=== PATIENT | female | born 1940 | race Caucasian/White ===

== ENCOUNTER → 2016-08-06 | Outpatient (CLI) | payer OTHER ==
[~2016-08-06] MED LIST: AMLO2.5T PO; CHOL20009 PO; IBUP-1050 PO; PANT1TAB48 PO
--- NOTE | 2016-08-08 13:33 | MAMMOGRAPHY REPORT ---
BILATERAL DIGITAL SCREENING MAMMOGRAM TOMOSYNTHESIS WITH CAD: 08/06/2016 CLINICAL HISTORY: Routine screening examination. TECHNIQUE: Breast tomosynthesis in addition to standard 2D mammography was performed. Current study was also evaluated with a Computer Aided Detection (CAD) system. COMPARISON: Comparison is made to exams dated: 07/27/2015 mammogram, 07/21/2013 mammogram, 07/25/2014 mammogram, 07/10/2012 mammogram, 11/14/2009 mammogram - [facility] [address], and 02/26/2008. BREAST COMPOSITION: There are scattered areas of fibroglandular density in both breasts. FINDINGS: An asymmetry in the upper outer quadrant of the right breast appears similar to the 2007, 11/14/2009 and 07/10/2012 mammograms, most likely representing the patient's baseline parenchy mal pattern. No new suspicious mass, architectural distortion or cluster of microcalcifications is seen. IMPRESSION: ACR BI-RADS CATEGORY 1: NEGATIVE There is no mammographic evidence of malignancy. A 1 year screening mammogram is recommended. The p atient will receive written notification of the results. Approximately 10% of breast cancers are not detected with mammography. A negative mammographic repor t should not delay biopsy if a clinically suggestive mass is present. Anna Flower M.D. ay/:08/07/2016 17:53:02 Corporate Law Specialist: Shannan ADDISON(Isidro)(Aliza), [facility] [address] letter sent: Normal 1/2 BI-RADS Code: ACR BI-RADS Category 1: Negative
== END | disposition home or self-care (01) ==
LOC: C.MAMM 13:13
PROVIDERS: ATTEND Internal Medicine Geriatric Medicine
DX: Z12.31 Encounter for screening mammogram for malignant neoplasm of breast (principal)

== ENCOUNTER → 2016-12-17 | Day surgery (SDC) | payer OTHER ==
[2016-11-21 10:42] VITALS: Ht 152.4 cm; Wt 63.6 kg
[~2016-12-17] VITALS: Ht 152.4 cm; Wt 63.6 kg
[~2016-12-17] MED LIST changes: +500ML BSS 0.3ML EPI 1:1000PF IRRIG ONE; +ACETAMINOPHEN 325 MG TAB PO PRN; +AMVISC PLUS 0.8ML SYRINGE INT OCU ONE; +ATROPINE SULFATE 0.1 MG/ML 5ML SYR IV PRN; +BSS FLUSH ONE; -CHOL20009 PO; +EpHEDrine SULFATE INJ 50 MG/ML AMP IV PRN; +EpINEphrine INJ 1MG/ML AMP 1 MG/ML AMP ONE; +FENTANYL CITRATE INJ 50 MCG/1 ML 2 ML VIAL ONE; +LACTATED RINGER'S 1000ML 500 ML IV SCH; +LIDOCAINE 3.5% OPH GEL PER APPLICATION CHARGE ONE; +LIDOCAINE HCL 1% MPF 2 ML VIAL ONE; +LIDOCAINE HCL 2% 2 ML VIAL (20MG/ML) ONE; +MIDAZOLAM HCL 1 MG/ML 2ML VIAL ONE; +OCUCOAT 1 ML SOLN IO ONE; +POVIDONE-IODINE OP SOLN 30 ML BTL ONE; +PROPARACAINE 0.5% OP SOLN PER DROP CHARGE OPL SCH; +PROPOFOL IV EMULSION 10 MG/ML 20 ML VIAL IV ONE; +TOBRAMYCIN/DEXAMETHASONE OPH OINT PER APPLN CHARGE ONE
[2016-12-17] MEDS: PHENYLEPHRINE HCL 2.5% OP SOLN PER DROP CHARGE OPL SCH ×2 (09:22→09:28)
[2016-12-17] MEDS: TROPICAMIDE 1% OP SOLN PER DROP CHARGE OPL SCH ×2 (09:23→09:29)
[2016-12-17] MEDS: CYCLOPENTOLATE HCL 1% OP SOLN PER DROP CHARGE OPL SCH ×2 (09:24→09:30)
[2016-12-17] MEDS: KETOROLAC 0.5% OP SOLN PER DROP CHARGE OPL SCH ×2 (09:25→09:31)
[2016-12-17] MEDS: GATIFLOXACIN OP SOLN PER DROP CHARGE OPL SCH ×2 (09:27→09:37)
--- NOTE | 2016-12-17 09:35 | History & Physical Bridge - SC ---
H&P Re-Evaluation Bridge Note: I have examined the patient, reviewed the History & Physical and in the interval since the performance of the History & Physical I have noted the following changes of clinical significance: No changes noted
[2016-12-17 10:26] VITALS: TEMP 36.8
--- NOTE | 2016-12-17 10:26 | Discharge Instructions-SurgCtr ---
Discharge Instructions Date of Service Dec 17, 2016. Visit Reason for Visit: Cataract Left Eye Discharge Discharge Diagnosis / Problem: cataract Discharge Goals Goal(s): Improve function Activity Recommendations Activity Limitations: per Instructions/Follow-up section Anesthesia . Post Anesthesia Instructions: If you have had General Anesthesia or IV Sedation: * Do not drive today. * Resume driving when surgeon permits. * Do not make important decisions or sign legal documents today. * Call surgeon for: 1. Temperature elevations greater than 101 degrees F. 2. Uncontrollable pain. 3. Excessive bleeding. 4. Persistent nausea and vomiting. 5. Medication intolerance (nausea, vomiting or rash). * For nausea and vomiting use only clear liquids such as: tea, soda, bouillon until nausea subsides, then gradually increase diet as tolerated. * If you have any concerns or questions, call your surgeon's office. If physician is unavailable and it is an emergency, call 911 or go to the nearest emergency room. . Instructions / Follow-Up Instructions / Follow-Up ACTIVITY RECOMMENDATIONS: * No strenuous lifting, jogging or running for 4 days * No swimming or yard work for 1 week. * Limited bending is permitted, such as putting on shoes. RETURN TO SCHOOL/WORK: No work until seen by physician in office. MEDICATIONS: Resume previous medications unless instructed otherwise by your surgeon. This includes eye drops for glaucoma. Zymaxid/Gatifloxacin (whiteside cap) - one drop every 2 hours until bedtime Nevanac/Ilevro/Prolensa/Ketorolac (tilley cap) - one drop every 4 hours until bedtime Prednisolone/Durezol (white/pink cap, SHAKE WELL) - one drop every 2 hours until bedtime Starting tomorrow - all 3 drops every 4 hours until seen in the office Optive drops - as needed for discomfort SPECIAL CARE INSTRUCTIONS: * Wear eyeshield when sleeping, for four nights. * You may wear your own glasses or sunglasses while awake. * You may read or watch TV * You may shower and wash your face, but be gentle around the eye and pat dry. * Blurry vision and mild irritation are normal. * Call office if pain is more severe or vision becomes dark at . FOLLOW UP VISIT: Follow-up with Dr Zamarripa tomorrow. Diet Recommendations Home Diet: resume previous diet Procedures Procedures Performed: Left Cataract Phacoemulsification With Intraocular Lens Implant Pending Studies Studies pending at discharge: no Medical Emergencies . Who to Call and When: Medical Emergencies: If at any time you feel your situation is an emergency, please call 911 immediately. . Non-Emergent Contact Non-Emergency issues call your: Marketing Developer . . "Provider Documentation" section prepared by William Zamarripa. .
--- NOTE | 2016-12-17 10:27 | [facility] Operative Report ---
Operative Report Date of Service Dec 17, 2016. Operative Report 1. PREOPERATIVE DIAGNOSIS: Cataract of the left eye. 2. POSTOPERATIVE DIAGNOSIS: Same. 3. PROCEDURE: Phacoemulsification with intraocular lens implantation of the left eye. SURGEON: Dr. William Zamarripa. ANESTHESIA: Topical Lidocaine gel, 1% Non- Preserved intracameral Lidocaine, and monitored intravenous sedation. INDICATIONS FOR THE PROCEDURE: The patient is a 76 - year-old female with a history of cataract of the left eye causing significant visual impairment. The details of the proposed procedure were explained to the patient who asked appropriate questions and following discussion of all risks, benefits and alternatives agreed to have the procedure done. 4. OPERATION AND FINDINGS: DESCRIPTION OF PROCEDURE: After informed consent was obtained, the patient was brought to the Operating Room at the [facility]. The patient was placed in a supine position and then the left eye was prepped and draped in the usual sterile fashion for intraocular surgery. A drop of topical Lidocaine gel was placed in the operative eye. A wire lid speculum was then placed in the fornices. A corneal paracentesis was then created temporally. The Non-Preserved Lidocaine was then instilled into the anterior chamber. The anterior chamber was then pressurized with viscoelastic. A 2.0 mm clear corneal incision was then created temporally. A cystotome was inserted into the anterior chamber and used to create a tear in the anterior lens capsule. This capsular tear was then used to create a small flap and the flap was dragged in a counterclockwise direction in order to create a continuous curvilinear capsulorrhexis. Hydrodissection was accomplished with balanced salt solution. Phacoemulsification of the lens nucleus was then performed in a standard [id number]-wkzptey technique. The phaco time was 34 seconds with an average power of 19 %. The remaining cortical material was removed using irrigation aspiration. The capsular bag was then filled with viscoelastic. A Bausch & Lomb MI60L +25.5 diopters lens was then loaded into the injector and injected into the capsular bag. The remaining viscoelastic was removed with the irrigation aspiration handpiece. The wound was hydrated and then checked and found to be watertight. The intraocular pressure was checked and found to be adequate. The wire lid speculum was removed and the patient's face was cleaned and dried. TobraDex ointment was placed in the inferior fornix. The patient was discharged to the Recovery Room having tolerated the procedure well. There were no complications. The patient will be seen tomorrow in the office for follow-up. I attest to the content of the Intraoperative Record and any orders documented therein. Any exceptions are noted below.
[2016-12-17 10:49] VITALS: BP 148/68; PULSE 61; O2SAT 97
--- NOTE | 2016-12-17 10:54 | Anesthesiology Progress Note ---
Anesthesia Post Op Note Date & Time Dec 17, 2016 at 10:53 Vital Signs Pain Intensity: 0 Vital Signs Past 12 Hours Date Time Temp Pulse Resp B/P (MAP) Pulse Ox O2 Delivery O2 Flow Rate FiO2 12/17/16 10:49 61 16 148/68 (94) 97 Room Air 12/17/16 10:26 36.8 63 16 134/57 (82) 97 Room Air 12/17/16 09:13 36.7 66 16 148/78 (101) 96 Room Air Notes Mental Status: alert / awake / arousable, participated in evaluation Pt Amnestic to Procedure: No Nausea / Vomiting: adequately controlled Pain: adequately controlled Airway Patency, RR, SpO2: stable & adequate BP & HR: stable & adequate Hydration State: stable & adequate Anesthetic Complications: no major complications apparent Degree of amnesia expected for MAC
== END | disposition home or self-care (01) ==
LOC: X.SURG 08:56
PROVIDERS: ATTEND Ophthalmology
DX: H26.9 Unspecified cataract (principal); I10 Essential (primary) hypertension; M81.0 Age-related osteoporosis without current pathological fracture; E78.5 Hyperlipidemia, unspecified; K21.9 Gastro-esophageal reflux disease without esophagitis; E55.9 Vitamin D deficiency, unspecified; Z82.49 Family history of ischemic heart disease and other diseases of the circulatory system; Z79.899 Other long term (current) drug therapy

== ENCOUNTER → 2017-01-14 | Day surgery (SDC) | payer OTHER ==
[2016-12-31 07:55] VITALS: Ht 152.4 cm; Wt 63.6 kg
[~2017-01-14] VITALS: Ht 152.4 cm; Wt 63.6 kg
[~2017-01-14] MED LIST changes: -FENTANYL CITRATE INJ 50 MCG/1 ML 2 ML VIAL ONE; -LIDOCAINE HCL 2% 2 ML VIAL (20MG/ML) ONE; -PROPARACAINE 0.5% OP SOLN PER DROP CHARGE OPL SCH; +PROPARACAINE 0.5% OP SOLN PER DROP CHARGE OPR SCH; -PROPOFOL IV EMULSION 10 MG/ML 20 ML VIAL IV ONE
[2017-01-14] MEDS: PHENYLEPHRINE HCL 2.5% OP SOLN PER DROP CHARGE OPR SCH ×2 (10:06→10:11)
[2017-01-14] MEDS: TROPICAMIDE 1% OP SOLN PER DROP CHARGE OPR SCH ×2 (10:07→10:12)
[2017-01-14] MEDS: CYCLOPENTOLATE HCL 1% OP SOLN PER DROP CHARGE OPR SCH ×2 (10:08→10:13)
[2017-01-14] MEDS: KETOROLAC 0.5% OP SOLN PER DROP CHARGE OPR SCH ×2 (10:09→10:14)
[2017-01-14] MEDS: GATIFLOXACIN OP SOLN PER DROP CHARGE OPR SCH ×2 (10:10→10:26)
--- NOTE | 2017-01-14 11:23 | Discharge Instructions-SurgCtr ---
Discharge Instructions Date of Service Jan 14, 2017. Visit Reason for Visit: Cataract Right Eye Discharge Discharge Diagnosis / Problem: cataract Discharge Goals Goal(s): Improve function Activity Recommendations Activity Limitations: per Instructions/Follow-up section Anesthesia . Post Anesthesia Instructions: If you have had General Anesthesia or IV Sedation: * Do not drive today. * Resume driving when surgeon permits. * Do not make important decisions or sign legal documents today. * Call surgeon for: 1. Temperature elevations greater than 101 degrees F. 2. Uncontrollable pain. 3. Excessive bleeding. 4. Persistent nausea and vomiting. 5. Medication intolerance (nausea, vomiting or rash). * For nausea and vomiting use only clear liquids such as: tea, soda, bouillon until nausea subsides, then gradually increase diet as tolerated. * If you have any concerns or questions, call your surgeon's office. If physician is unavailable and it is an emergency, call 911 or go to the nearest emergency room. . Instructions / Follow-Up Instructions / Follow-Up ACTIVITY RECOMMENDATIONS: * No strenuous lifting, jogging or running for 4 days * No swimming or yard work for 1 week. * Limited bending is permitted, such as putting on shoes. RETURN TO SCHOOL/WORK: No work until seen by physician in office. MEDICATIONS: Resume previous medications unless instructed otherwise by your surgeon. This includes eye drops for glaucoma. Zymaxid/Gatifloxacin (whiteside cap) - one drop every 2 hours until bedtime Nevanac/Ilevro/Prolensa/Ketorolac (tilley cap) - one drop every 4 hours until bedtime Prednisolone/Durezol (white/pink cap, SHAKE WELL) - one drop every 2 hours until bedtime Starting tomorrow - all 3 drops every 4 hours until seen in the office Optive drops - as needed for discomfort SPECIAL CARE INSTRUCTIONS: * Wear eyeshield when sleeping, for four nights. * You may wear your own glasses or sunglasses while awake. * You may read or watch TV * You may shower and wash your face, but be gentle around the eye and pat dry. * Blurry vision and mild irritation are normal. * Call office if pain is more severe or vision becomes dark at . FOLLOW UP VISIT: Follow-up with Dr Zamarripa tomorrow. Diet Recommendations Home Diet: resume previous diet Procedures Procedures Performed: Right Cataract Phacoemulsification With Intraocular Lens Implant Pending Studies Studies pending at discharge: no Medical Emergencies . Who to Call and When: Medical Emergencies: If at any time you feel your situation is an emergency, please call 911 immediately. . Non-Emergent Contact Non-Emergency issues call your: [employer] Firer/Fireman . . "Provider Documentation" section prepared by William Zamarripa. .
--- NOTE | 2017-01-14 11:24 | [facility] Operative Report ---
Operative Report Date of Service Jan 14, 2017. Operative Report 1. PREOPERATIVE DIAGNOSIS: Cataract of the right eye. 2. POSTOPERATIVE DIAGNOSIS: Same. 3. PROCEDURE: Phacoemulsification with intraocular lens implantation of the right eye. SURGEON: Dr. William Zamarripa. ANESTHESIA: Topical Lidocaine gel, 1% Non- Preserved intracameral Lidocaine, and monitored intravenous sedation. INDICATIONS FOR THE PROCEDURE: The patient is a 76 - year-old female with a history of cataract of the right eye causing significant visual impairment. The details of the proposed procedure were explained to the patient who asked appropriate questions and following discussion of all risks, benefits and alternatives agreed to have the procedure done. 4. OPERATION AND FINDINGS: DESCRIPTION OF PROCEDURE: After informed consent was obtained, the patient was brought to the Operating Room at the [facility]. The patient was placed in a supine position and then the right eye was prepped and draped in the usual sterile fashion for intraocular surgery. A drop of topical Lidocaine gel was placed in the operative eye. A wire lid speculum was then placed in the fornices. A corneal paracentesis was then created temporally. The Non-Preserved Lidocaine was then instilled into the anterior chamber. The anterior chamber was then pressurized with viscoelastic. A 2.0 mm clear corneal incision was then created temporally. A cystotome was inserted into the anterior chamber and used to create a tear in the anterior lens capsule. This capsular tear was then used to create a small flap and the flap was dragged in a counterclockwise direction in order to create a continuous curvilinear capsulorrhexis. Hydrodissection was accomplished with balanced salt solution. Phacoemulsification of the lens nucleus was then performed in a standard pjnatq-wfk-udjeori technique. The phaco time was 29 seconds with an average power of 14 %. The remaining cortical material was removed using irrigation aspiration. The capsular bag was then filled with viscoelastic. A Bausch & Lomb MI60L +22.5 diopters lens was then loaded into the injector and injected into the capsular bag. The remaining viscoelastic was removed with the irrigation aspiration handpiece. The wound was hydrated and then checked and found to be watertight. The intraocular pressure was checked and found to be adequate. The wire lid speculum was removed and the patient's face was cleaned and dried. TobraDex ointment was placed in the inferior fornix. The patient was discharged to the Recovery Room having tolerated the procedure well. There were no complications. The patient will be seen tomorrow in the office for follow-up. I attest to the content of the Intraoperative Record and any orders documented therein. Any exceptions are noted below.
[2017-01-14 11:25] VITALS: TEMP 36.8
[2017-01-14 11:43] VITALS: BP 164/72; PULSE 70; O2SAT 96
--- NOTE | 2017-01-14 12:09 | Anesthesia Progress Nt - [facility] ---
Anesthesia Post Op Note Date & Time Jan 14, 2017 at 12:08 Vital Signs Pain Intensity: 0 Vital Signs Past 12 Hours Date Time Temp Pulse Resp B/P (MAP) Pulse Ox O2 Delivery O2 Flow Rate FiO2 01/14/17 11:43 70 16 164/72 (102) 96 Room Air 01/14/17 11:25 36.8 72 18 149/79 (102) 97 Room Air 01/14/17 09:59 36.9 68 22 161/71 (101) 98 Room Air Notes Mental Status: alert / awake / arousable, participated in evaluation Pt Amnestic to Procedure: Yes Nausea / Vomiting: adequately controlled Pain: adequately controlled Airway Patency, RR, SpO2: stable & adequate BP & HR: stable & adequate Hydration State: stable & adequate Anesthetic Complications: no major complications apparent
== END | disposition home or self-care (01) ==
LOC: X.SURG 09:22
PROVIDERS: ATTEND Ophthalmology
DX: H26.9 Unspecified cataract (principal); I10 Essential (primary) hypertension; E78.5 Hyperlipidemia, unspecified; H40.9 Unspecified glaucoma; Z79.899 Other long term (current) drug therapy

== ENCOUNTER → 2017-02-10 | Outpatient (CLI) | payer OTHER ==
[~2017-02-10] MED LIST changes: -500ML BSS 0.3ML EPI 1:1000PF IRRIG ONE; -ACETAMINOPHEN 325 MG TAB PO PRN; -AMVISC PLUS 0.8ML SYRINGE INT OCU ONE; -ATROPINE SULFATE 0.1 MG/ML 5ML SYR IV PRN; -BSS FLUSH ONE; -EpHEDrine SULFATE INJ 50 MG/ML AMP IV PRN; -EpINEphrine INJ 1MG/ML AMP 1 MG/ML AMP ONE; -LACTATED RINGER'S 1000ML 500 ML IV SCH; -LIDOCAINE 3.5% OPH GEL PER APPLICATION CHARGE ONE; -LIDOCAINE HCL 1% MPF 2 ML VIAL ONE; -MIDAZOLAM HCL 1 MG/ML 2ML VIAL ONE; -OCUCOAT 1 ML SOLN IO ONE; -POVIDONE-IODINE OP SOLN 30 ML BTL ONE; -PROPARACAINE 0.5% OP SOLN PER DROP CHARGE OPR SCH; -TOBRAMYCIN/DEXAMETHASONE OPH OINT PER APPLN CHARGE ONE
[2017-02-10 13:32] LABS: BASO % 0.5 %; BASO ABS # 0.04 K/uL (0-0.2); COMPLETE YES; EOS % 1.8 %; HEMATOCRIT 43.7 % (37-47); IG% 0.2 %; LYMPH % 39.1 %; MEAN CELL VOLUME 87.8 fL (80-100); MEAN CORPUSCULAR HEMOGLOBIN 29.1 pg (25-34); MEAN CORPUSCULAR HGB CONC 33.2 g/dl (32-36); MEAN PLATELET VOLUME 10.3 fL (7.4-10.4); MONO % 7.1 %; NEUT % 51.3 %; PLATELET COUNT 383 K/uL (130-400); RED BLOOD COUNT 4.98 M/uL (4.2-5.4); WHITE BLOOD COUNT 8.45 K/uL (4.8-10.8)
[2017-02-10 14:07] LABS: ALT/SGPT 23 U/L (12-78); BLOOD UREA NITROGEN 11 mg/dl (7-18); BUN/CREATININE RATIO 14.8 (10-20); CALCIUM 9.4 mg/dl (8.5-10.1); CARBON DIOXIDE 24 mmol/L (21-32); CHLORIDE 105 mmol/L (98-107); CHOLESTEROL 210 mg/dl (0-200); CREATININE 0.77 mg/dl (0.60-1.20); GLUCOSE 93 mg/dl (70-99); SODIUM 140 mmol/L (136-145); TRIGLYCERIDES 213 mg/dl (0-150); VERY LOW DENSITY LIPOPROT CALC 43 mg/dl
[2017-02-10 14:18] LABS: ALB/GLOB RATIO 1.1 (0.9-2); ALKALINE PHOSPHATASE 72 U/L (45-117); AST/SGOT 20 U/L (15-37); CHOLESTEROL/HDL RATIO 3.4; HDL CHOLESTEROL 61 mg/dl; LDL CHOLESTEROL CALCULATED 106 mg/dl
== END | disposition home or self-care (01) ==
LOC: C.LABBC 12:14
PROVIDERS: ATTEND Internal Medicine Geriatric Medicine
DX: E78.5 Hyperlipidemia, unspecified (principal); I10 Essential (primary) hypertension; E55.9 Vitamin D deficiency, unspecified; K62.5 Hemorrhage of anus and rectum; K22.2 Esophageal obstruction; K76.0 Fatty (change of) liver, not elsewhere classified

== ENCOUNTER → 2017-08-12 | Outpatient (CLI) | payer OTHER ==
[~2017-08-12] MED LIST changes: +PANT1TAB3 PO; -PANT1TAB48 PO
--- NOTE | 2017-08-13 07:56 | MAMMOGRAPHY REPORT ---
BILATERAL DIGITAL SCREENING MAMMOGRAM TOMOSYNTHESIS WITH CAD: 08/12/2017 CLINICAL HISTORY: Routine screening. TECHNIQUE: Breast tomosynthesis in addition to standard 2D mammography was performed. Current study was also evaluated with a Computer Aided Detection (CAD) system. COMPARISON: Comparison is made to exams dated: 08/06/2016 mammogram, 07/27/2015 mammogram, 07/25/2014 m ammogram, 07/21/2013 mammogram, 07/10/2012 mammogram, and 11/14/2009 mammogram - [facility]. BREAST COMPOSITION: There are scattered areas of fibroglandular density in both breasts. FINDINGS: There is stable focal asymmetry in the upper outer middle one third of the right breast. N o suspicious mass, architectural distortion or cluster of microcalcifications is seen. IMPRESSION: ACR BI-RADS CATEGORY 1: NEGATIVE There is no mammographic evidence of malignancy. A 1 year screening mammogram is recommended. The pa tient will receive written notification of the results. Approximately 10% of breast cancers are not detected with mammography. A negative mammographic report should not delay biopsy if a clinically suggestive mass is present. Anna Flower M.D. ay/:08/12/2017 15:04:55 Documentation Nurse: Sanya ADDISON(R)(M), [facility] letter sent: Normal 1/2 BI-RADS Code: ACR BI-RADS Category 1: Negative
== END | disposition home or self-care (01) ==
LOC: C.MAMM 14:06
PROVIDERS: ATTEND Internal Medicine Geriatric Medicine
DX: Z12.31 Encounter for screening mammogram for malignant neoplasm of breast (principal)

== ENCOUNTER 2018-12-26 22:26 | Inpatient (IN) ==
[2018-12-26] MEDS ORDERED: MoRPHine SULFATE 4 MG/ML 1 ML CARP\\VIAL IV STA (22:48)
[2018-12-26] MEDS ORDERED: ONDANSETRON INJ 2 MG/ML 2 ML VIAL IV STA ×2 (22:48→23:38)
[2018-12-26 22:55] LABS: Basophils # (auto) 0.04 K/uL (0-0.2); Basophils % (auto) 0.5 %; Eosinophils # (auto) 0.24 K/uL (0-0.5); Eosinophils % (auto) 3.1 %; Hematocrit (blood only) 43.5 % (37-47); Hemoglobin 14.7 g/dL (12.0-16.0); Immature Granulocytes # (auto) 0.02 K/uL (0.00-0.02); Immature Granulocytes % (auto) 0.3 %; Lymphocytes # (auto) 3.17 K/uL (1.2-3.4); Lymphocytes % (auto) 41.3 %; Mean Corpuscular Hemoglobin 29.5 pg (25-34); Mean Corpuscular Hgb Conc 33.8 g/dL (32-36); Mean Corpuscular Volume 87.2 fL (80-100); Monocytes # (auto) 0.59 K/uL (0.11-0.59); Monocytes % (auto) 7.7 %; Neutrophils # (auto) 3.61 K/uL (1.4-6.5); Neutrophils % (auto) 47.1 %; Platelet Count 345 K/uL (130-400); RDW Coefficient of Variation 13.9 % (11.5-14.5); RDW Standard Deviation 44.3 fL (36.4-46.3); Red Blood Count 4.99 M/uL (4.2-5.4); White Blood Count 7.67 K/uL (4.8-10.8)
[2018-12-26 23:11] LABS: Albumin Level 3.8 gm/dl (3.4-5.0); BUN Creatinine Ratio 21.5 (10-20); Calcium 9.1 mg/dl (8.5-10.1); Est GFR (African American) 78.2; Est GFR (Non-African American) 67.5; Potassium 3.7 mmol/L (3.5-5.1)
[2018-12-26 23:23] LABS: Bilirubin,Total 0.4 mg/dl (0.2-1); Globulin 3.8 gm/dl (2.5-4.0); Total Protein 7.6 gm/dl (6.4-8.2); Troponin I 0.05 ng/ml (0-0.045)
--- NOTE | 2018-12-27 00:01 | Emergency Department Note ---
History of Present Illness General Chief complaint: Chest Pain Stated complaint: CHEST PAIN History of Present Illness Maximum Pain Intensity: 5 This 78-year-old presents to the ER complaining of right upper quadrant pain Location: Right upper quadrant Quality: Achy Severity: Moderate Duration: Past day Timing: Started 1 day ago Context: Symptoms persisted and patient came in Modifying factors: better with nothing; worse with palpation Patient states the pain radiates to her back. Patient had a lot of fried food today at the fair. She still has her gallbladder. Patient has high blood pressure and no other medical problems. No history of heart disease. Patient denies exertional chest pain, dyspnea, fever, chills, vomiting, diarrhea or any other medical complaints. Home Medications Home Medications Medication Instructions Recorded Confirmed Type amlodipine 10 mg tablet 10 mg PO DAILY #90 tab 12/14/18 12/26/18 Rx Allergies Allergy/AdvReac Type Severity Reaction Status Date / Time moxifloxacin AdvReac Unknown CT, N/V Verified 12/26/18 22:54 phenobarbital AdvReac Unknown "I GOT Verified 12/26/18 22:54 REALLY DITZY" Past Med/Surg History Medical History High blood pressure Social History Feels Safe at Home: Yes Smoking Status: Never smoker Review of Systems All systems reviewed & are unremarkable except as noted in HPI & below Physical Exam Vital Signs Vital Signs - 24 hr 12/26/18 22:27 12/26/18 22:47 12/26/18 22:51 Temperature 36.7 C Temperature Source Oral Sepsis Recent Fever Within 48 Hours No Sepsis New/Unexplained Change in Mental Status No Sepsis Action Taken by Nursing No Action Required Pulse Rate 83 76 Pulse Rate [Finger] 73 Pulse Rate from SpO2 Sensor Respiratory Rate 16 20 Respiratory Effort / Characteristics Non-Labored Spontaneous Respiratory Depth Normal Blood Pressure 191/79 H Blood Pressure Mean 116 Pulse Oximetry 98 Oxygen Delivery Method Room Air Room Air 12/26/18 22:55 12/26/18 23:00 12/26/18 23:01 Temperature Temperature Source Sepsis Recent Fever Within 48 Hours Sepsis New/Unexplained Change in Mental Status Sepsis Action Taken by Nursing Pulse Rate 73 76 74 Pulse Rate [Finger] Pulse Rate from SpO2 Sensor 74 76 74 Respiratory Rate 16 22 23 Respiratory Effort / Characteristics Respiratory Depth Blood Pressure 160/81 H 185/91 H Blood Pressure Mean 107 122 Pulse Oximetry 99 98 97 Oxygen Delivery Method 12/26/18 23:30 12/26/18 23:31 12/27/18 00:03 Temperature Temperature Source Sepsis Recent Fever Within 48 Hours Sepsis New/Unexplained Change in Mental Status Sepsis Action Taken by Nursing Pulse Rate 65 65 77 Pulse Rate [Finger] Pulse Rate from SpO2 Sensor 66 65 Respiratory Rate 15 19 17 Respiratory Effort / Characteristics Respiratory Depth Blood Pressure 167/67 H Blood Pressure Mean 100 Pulse Oximetry 97 97 Oxygen Delivery Method 12/27/18 00:30 12/27/18 01:24 12/27/18 01:30 Temperature Temperature Source Sepsis Recent Fever Within 48 Hours Sepsis New/Unexplained Change in Mental Status Sepsis Action Taken by Nursing Pulse Rate 68 64 64 Pulse Rate [Finger] Pulse Rate from SpO2 Sensor 67 63 63 Respiratory Rate 19 21 20 Respiratory Effort / Characteristics Respiratory Depth Blood Pressure Blood Pressure Mean Pulse Oximetry 98 96 97 Oxygen Delivery Method 12/27/18 01:31 12/27/18 02:00 12/27/18 02:01 Temperature Temperature Source Sepsis Recent Fever Within 48 Hours Sepsis New/Unexplained Change in Mental Status Sepsis Action Taken by Nursing Pulse Rate 59 L 60 58 L Pulse Rate [Finger] Pulse Rate from SpO2 Sensor 59 L 59 L 58 L Respiratory Rate 17 15 26 H Respiratory Effort / Characteristics Respiratory Depth Blood Pressure 155/68 H 134/61 Blood Pressure Mean 97 85 Pulse Oximetry 96 95 95 Oxygen Delivery Method 12/27/18 02:30 12/27/18 02:32 Temperature Temperature Source Sepsis Recent Fever Within 48 Hours Sepsis New/Unexplained Change in Mental Status Sepsis Action Taken by Nursing Pulse Rate 64 66 Pulse Rate [Finger] Pulse Rate from SpO2 Sensor 65 67 Respiratory Rate 16 22 Respiratory Effort / Characteristics Respiratory Depth Blood Pressure 198/192 H Blood Pressure Mean 194 Pulse Oximetry 97 96 Oxygen Delivery Method VITALS: Vitals are noted on the nurse's note and reviewed by myself. Vital signs hypertensive. GENERAL: Pleasant female, in no acute distress, nondiaphoretic, well-developed well-nourished. SKIN: The skin was without rashes, erythema, edema, or bruising. There is no tenting of the skin. Capillary reflex less than 2 seconds. HEAD: Normocephalic atraumatic. EARS: External auditory canals clear EYES: Pupils equal round and reactive to light and accommodation. Conjunctivae without injection, sclerae without icterus. Extraocular movements intact. NOSE: Patent, turbinates without inflammation or discharge. MOUTH: Mucous membranes moist. Pharynx without erythema or exudate. Uvula midline. Airway patent. Tongue does not deviate. NECK: Supple without nuchal rigidity. No lymphadenopathy. No thyromegaly. Cervical spine is nontender. No JVD. HEART: Regular rate and rhythm LUNGS: Clear to auscultation bilaterally without wheezes, rales or rhonchi. No retractions or accessory muscle use. ABDOMEN: Positive bowel sounds x 4. Normal tympanic percussion. Soft, tender to palpation right upper quadrant, without masses or organomegaly. No guarding or rebound tenderness. No CVA tenderness MUSCULOSKELETAL: No muscle atrophy, erythema, or edema noted. NEURO: Patient was alert and oriented to person place and time. Normal sens ation to light and sharp touch. No focal neurological deficits. Course Administered Medications Ioversol (Optiray 320 125ml) 71 ml IV ONCE PRN PRN Reason: Interaction Checking Stop: 12/31/18 00:06 Last Admin: 12/27/18 00:08 Dose: 71 ml Documented by: [id number] Discontinued Medications Cefoxitin Sodium (Mefoxin) 2,000 mg in 60 mls @ 100 mls/hr IV NOW STA Stop: 12/27/18 03:04 Last Admin: 12/27/18 03:00 Dose: 100 mls/hr Documented by: [id number] Morphine Sulfate (Morphine Sulfate) 4 mg IV NOW STA Stop: 12/26/18 22:49 Last Admin: 12/26/18 23:03 Dose: 4 mg Documented by: [id number] Ondansetron HCl (Zofran) 4 mg IV NOW STA Stop: 12/26/18 22:49 Last Admin: 12/26/18 23:03 Dose: 4 mg Documented by: [id number] Ondansetron HCl (Zofran) 4 mg IV NOW STA Stop: 12/26/18 23:39 Last Admin: 12/26/18 23:41 Dose: 4 mg Documented by: [id number] Medical Decision Making Medical Records Attestation: I reviewed the patient's medical records. Home Medications Current Medication List: was personally reviewed by me Laboratory Data Attestation: I reviewed the patient's lab results. Result diagrams: 12/26/18 22:45 12/26/18 22:45 Lab Results 12/26/18 12/26/18 12/26/18 Range/Units 22:45 22:45 22:57 WBC 7.67 (4.8-10.8) K/uL RBC 4.99 (4.2-5.4) M/uL Hgb 14.7 (12.0-16.0) g/dL Hct 43.5 (37-47) % MCV 87.2 (80-100) fL MCH 29.5 (25-34) pg MCHC 33.8 (32-36) g/dL RDW Std Deviation 44.3 (36.4-46.3) fL RDW Coeff of [place] 13.9 (11.5-14.5) % Plt Count 345 (130-400) K/uL MPV 10.0 (7.4-10.4) fL Immature Gran % (Auto) 0.3 % Neut % (Auto) 47.1 % Lymph % (Auto) 41.3 % [place] % (Auto) 7.7 % Eos % (Auto) 3.1 % Baso % (Auto) 0.5 % Immature Gran # (Auto) 0.02 (0.00-0.02) K/uL Neut # (Auto) 3.61 (1.4-6.5) K/uL Lymph # (Auto) 3.17 (1.2-3.4) K/uL [place] # (Auto) 0.59 (0.11-0.59) K/uL Eos # (Auto) 0.24 (0-0.5) K/uL Baso # (Auto) 0.04 (0-0.2) K/uL Sodium 141 (136-145) mmol/L Potassium 3.7 (3.5-5.1) mmol/L Chloride 108 H (98-107) mmol/L Carbon Dioxide 29 (21-32) mmol/L Anion Gap 5.0 (3-11) BUN 18 (7-18) mg/dl Creatinine 0.84 (0.6-1.2) mg/dl Est Cr Clr Drug Dosing 47.0 ml/min Est GFR ( Amer) 78.2 Est GFR (Non-Af Amer) 67.5 BUN/Creatinine Ratio 21.5 H (10-20) Glucose 101 H (70-99) mg/dl Calcium 9.1 (8.5-10.1) mg/dl Total Bilirubin 0.4 (0.2-1) mg/dl AST 21 (15-37) U/L ALT 21 (12-78) U/L Alkaline Phosphatase 76 (45-117) U/L POC Troponin I < 0.03 (0-0.045) ng/ml Troponin I 0.050 H* (0-0.045) ng/ml Total Protein 7.6 (6.4-8.2) gm/dl Albumin 3.8 (3.4-5.0) gm/dl Globulin 3.8 (2.5-4.0) gm/dl Albumin/Globulin Ratio 1.0 (0.9-2) Lipase 155 (73-393) U/L Imaging Data Attestation: I personally reviewed and interpreted this imaging study as follows: MDM Narrative Prior records/ancillary studies reviewed. Triage Nursing notes reviewed. Additional history obtained from family. The patient's history was concerning for abdominal/chest pain. Differential diagnosis: Etiologies such as cardiac ischemia, intra-abdominal, gallbladder, aortic dissection, pulmonary embolism, pneumonia, pneumothorax, musculoskeletal, infections, pericarditis, myocarditis, esophageal rupture, gastrointestinal, as well as others were entertained. Physical examination: As above. ER treatment provided: Morphine, Zofran IV On reassessment the patient felt better. Diagnostic interpretation by me: EKG ordered for chest pain The electrocardiogram was normal sinus, T wave inversions in the anterior leads, rate of 78, EKG compared to prior EKG with no acute changes noted. Impression normal sinus rhythm with T wave inversions in anterior leads unchanged interpreted by myself. Repeat EKG is also unchanged. I think arrhythmia is unlikely. EKG shows normal sinus rhythm with no interval abnormalities such as QT prolongation or WPW. There are no findings to suggest Brugada syndrome. Cardiac monitoring in the emergency department reveals no tachycardic or bradycardic dysrhythmia. Hypertrophic cardiomyopathy was considered but there are no clear historical elements pointing toward this. EKG is not suggestive. The QRS voltage is not extremely large and there are no suggestive Q waves. The labs revealed elevated troponin. Stable H&H Imaging studies: US GALLBLADDER: 12 mm non-mobile gallstone in gallbladder neck. Gallbladder is distended. Gallbladder wall is borderline thickened, measuring 3 mm. 5 mm probable gallbladder wall polyps and there is evidence of adenomyomatosis. Sonographic [place] sign is negative. Findings are equivocal for acute cholecystitis. Consider correlation with nuclear medicine biliary scan as clinically warranted. No biliary ductal dilatation. Liver measures 16.5 cm long. No right hydronephrosis Radiologist: Dav Alva MD Chest x-ray with no acute consolidation, pneumothorax or free air, atelectasis in the right lower lobe per my interpretation CTA CHEST: No evidence of pulmonary embolism No aortic aneurysm or dissection. Mild atherosclerotic plaque. Moderate left anterior descending coronary artery calcification. Mild aortic valve calcification. Moderate subsegmental atelectasis at lung bases, right middle lobe, and lingula. No effusion or pneumothorax. Small sliding hiatal hernia containing ingested material. 9 mm right thyroid nodule. Azygos fissure. Degenerative changes of thoracic spine. Radiologist: Dav Alva MD HEART SCORE: Hx: high/mod/low suspicion: 0 ECG: ST depression/nonspecific changes/normal: 1 Age: Greater than 65/45-64/less than 45: 2 Risk factors: (Hypertension, hyperlipidemia, diabetes, coronary disease, tobacco use, cocaine use): 1 Troponin: Greater than 2 times normal limits/1-2 times normal limits/normal: 1 Total: 5 Consultation: A consultation was placed with surgery, Dr. Ward and recommends medical admission for the elevated troponin and he will see the patient in the morning. The hospitalist, Dr Patino was consulted and will evaluate the patient. The case was discussed and diagnostics were reviewed. The patient was evaluated in the ER for further treatment. Exam and history seem consistent with acute cholecystitis with marginally elevated troponin. Surgery and medicine were consulted. Patient was started antibiotics. They will evaluate the patient. Patient is agreeable treatment plan of admission. By the evaluation outlined above emergent etiologies such as aortic dissection, pulmonary embolism, pneumonia, pneumothorax, pericarditis, myocarditis, gastrointestinal, as well as others were deemed relatively unlikely. The pt informed about the findings as listed above. All questions were answered and pleased with the treatment. Case reviewed with my attending The chart was completed utilizing [employer] voice recognition software. Grammatical errors, random word insertions, pronoun errors, and incomplete sentences are an occassional consequence of this system due to software limitations, ambient noise, and hardware issues. Any formal questions or concerns about the content, text, or information contained within the body of this dictation should be directly addressed to the physician district administrative assistant for clarification. Impression & Plan Acute cholecystitis, Elevated troponin Discharge Plan Visit Data Chief Complaint: Chest Pain Stated Complaint: CHEST PAIN ED Provider: Dav Fisher ED Midlevel Provider: Yakelin Kelly Discharge Problem: Acute cholecystitis, Elevated troponin Patient Disposition: Being Evaluated by Hospitalist Condition: Fair Forms Stand Alone Forms: Call Back Authorization, [facility] Who What Wear Prescriptions Prescriptions: No Action amlodipine 10 mg tablet 10 mg PO DAILY Qty: 90 RF: 3 Referrals Referrals: Valencia Forman PA-C [Primary Care Provider] -
[2018-12-27] MEDS ORDERED: OPTIRAY 320 125ml IV PRN (00:07)
--- NOTE | 2018-12-27 00:30 | Emergency Department Note ---
ED Visit Note Physician Evaluation Note: I have personally evaluated and examined this patient. I agree with assessment and plan of Karlee Kelly PA-C. RUQ pain radiating to back now without pain though on exam TTP over RUQ. Labs with elevated Trop just above baseline. EKG similar to previous. She has no cp, sob, but does not mother had NM without any symptoms. CT chest and US GB already ordered. Dav Fisher MD
[2018-12-27] MEDS ORDERED: cefOXitin 2,000 MG/60 ML BAG IV STA (02:29)
[2018-12-27] MEDS ORDERED: MAGNESIUM HYDROXIDE SUSP 30 ML UDC PO PRN (03:12)
[2018-12-27] MEDS ORDERED: ALUMINUM/MAGNESIUM SUSP 30 ML UDC PO PRN (03:12)
[2018-12-27] MEDS ORDERED: POLYETHYLENE (MIRALAX) 17 GM PACK PO PRN (03:12)
[2018-12-27] MEDS ORDERED: ONDANSETRON INJ 2 MG/ML 2 ML VIAL IV PRN (03:12)
[2018-12-27] MEDS ORDERED: ACETAMINOPHEN 325 MG TAB PO PRN (03:12)
[2018-12-27] MEDS ORDERED: MoRPHine SULFATE 4 MG/ML 1 ML CARP\\VIAL IV PRN (03:15)
--- NOTE | 2018-12-27 03:33 | History & Physical Report ---
Date of Service December 27, 2018 Assessment & Plan (1) Acute cholecystitis: 78 y/o F Hx HTN. Presents with RUQ pain. She had not had nausea, vomiting, CP, SOB, diarrhea, constipation or fevers. A gallbladder US demonstrated a 12mm stone in the gallbladder neck, and a distended gallbladder with mild thickening. This was deemed equivocal for cholecystitis. Initial labs were notable for a marginal troponin elevation. An EKG did not support ischemia. 1) Gallbladder obstruction - possibly with developing cholecystitis although currently she does not display clinical signs of infection - IVF, NPO, pain control. Surgical consult pending. A dose of antibiotics can be provided prior to surgery 2) Elevated trop - I believe that this is a result of her cholecystitis although she does have a sring family history of CAD. We cannot clear her for surgery without additional workup. We will consult cardiology, obtain an echo and trend her troponins. 3) HTN - poorly controlled - pain is contributing. Cont Norvasc - Hydralazine PRN added Full code - SCDs Total time for this admit including review of labs, meds, imaging, records - discussion with pt and ER attending - 38 min Present on Admission?: Yes History of Present Illness Chief Complaint: RUQ pain Primary Care Provider: Vaelncia Forman PA-C 78 y/o F Hx HTN. Presents with RUQ pain. She had not had nausea, vomiting, CP, SOB, diarrhea, constipation or fevers. A gallbladder US demonstrated a 12mm stone in the gallbladder neck, and a distended gallbladder with mild thickening. This was deemed equivocal for cholecystitis. Initial labs were notable for a marginal troponin elevation. An EKG did not support ischemia. 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 Social: Does not smoke or drink Family: Mother - [place] age 71 Father age 87 - history of CAD Allergies Allergy/AdvReac Type Severity Reaction Status Date / Time moxifloxacin AdvReac Unknown CT, N/V Verified 12/26/18 22:54 phenobarbital AdvReac Unknown "I GOT Verified 12/26/18 22:54 REALLY DITZY" Home Medications Home Medications Medication Instructions Recorded Confirmed Type amlodipine 10 mg tablet 10 mg PO DAILY #90 tab 12/14/18 12/26/18 Rx Past Med/Surg History Medical History High blood pressure Social History Feels Safe at Home: Yes Smoking Status: Never smoker Review of Systems Review of Systems: Gen: Denies fevers, night sweats, rigors, fatigue, malaise, weight loss/gain ENT: Denies congestion, throat pain, hearing loss Eyes: Denies acute visual changes CV: Denies CP, palpitations Pulmonary: Denies SOB, cough, wheezing GI: RUQ abdominal pain Neuro: Denies acute or unilateral weakness, acute gait impairment, headache or acute visual changes Musculoskeletal: Denies joint pain, inflammation Endocrine: Denies polydipsia, polyuria Skin: Denies acute rashes or ulcers Physical Exam Physical Exam: General: AAO x 3, no distress ENT: No erythema or exudates, no thrush Eyes: PEBBLES, EOMI Head and neck: Normocephalic, atraumatic, No JVD, neck is supple. Chest/heart: Nontender, S1,2, RRR, no murmurs, no gallops Lungs: CTAB, no wheezing or crackles Abdomen: Mild lat RUQ tenderness - no guarding or rebound Neuro: AAO x 3, speech is clear, no unilateral weakness or loss of sensation, coordination intact Musculoskeletal: No joint inflammation, muscle tenderness, FROM Skin: No acute rashes or ulcers Extremities: No clubbing, cyanosis, edema Results & Data Vital Signs (Past 12 Hours) Vital Signs Temp Pulse Pulse Resp BP Pulse Ox 12/27/18 02:32 66 22 198/192 H 96 12/27/18 02:30 64 16 97 12/27/18 02:01 58 L 26 H 134/61 95 12/27/18 02:00 60 15 95 12/27/18 01:31 59 L 17 155/68 H 96 12/27/18 01:30 64 20 97 12/27/18 01:24 64 21 96 12/27/18 00:30 68 19 98 12/27/18 00:03 77 17 12/26/18 23:31 65 19 167/67 H 97 12/26/18 23:30 65 15 97 12/26/18 23:01 74 23 185/91 H 97 12/26/18 23:00 76 22 98 12/26/18 22:55 73 16 160/81 H 99 12/26/18 22:51 73 12/26/18 22:47 76 20 12/26/18 22:27 98.1 F 83 16 191/79 H 98 Code Status & VTE Plan VTE Prophylaxis Plan VTE Prophylaxis will be ordered: Yes PG Care Time/CCT Total # of Minutes Spent Total Time Spent with Patient: Total time spent is greater than 50% in coordination of care (as documented) at patient's floor/unit and/or counseling patient:
[2018-12-27] MEDS: D5W AND LACTATED RINGERS 1,000 ML IV SCH ×2 (04:30→12:19)
[2018-12-27] MEDS ORDERED: HydrALAZINE HCL 20 MG/ML VIAL IV PRN (04:32)
--- NOTE | 2018-12-27 05:29 | XRay Report ---
XR chest 1V portable CLINICAL HISTORY: Chest Pain dyspnea COMPARISON STUDY: 04/21/2012 FINDINGS: Mild chronic bibasilar atelectatic change. Lungs otherwise appear clear. Mild stable cardiomegaly. IMPRESSION: Chronic bibasilar atelectasis. Mild stable cardiomegaly. The above report was generated using voice recognition software. It may contain grammatical, syntax or spelling errors. Electronically signed by: Douglas Zamora M.D. 12/27/2018 5:28 AM
--- NOTE | 2018-12-27 05:47 | CT Scan Report ---
CT angio chest PE protocol CT DOSE: 262.96 mGy.cm HISTORY: Dyspnea. Chest pain. PE TECHNIQUE: Multiaxial CT images of the chest were performed following the intravenous administration of contrast to evaluate the pulmonary arteries. Maximal intensity projection images were also obtaine d. A dose lowering technique was utilized adhering to the principles of ALARA. COMPARISON STUDY: None. FINDINGS: There is a normal caliber thoracic aorta with no evidence for dissection. There is no evide nce for pulmonary embolus. No pleural effusions. No pneumothorax. The liver and spleen are unremarkab le. No mediastinal or hilar lymphadenopathy. The central airways are patent. The lungs are clear. Mil d bibasilar atelectatic change. No significant mediastinal or hilar adenopathy. IMPRESSION: 1. No evidence for pulmonary embolus. 2. Mild bibasilar atelectatic change. The above report was generated using voice recognition software. It may contain grammatical, syntax or spelling errors. Electronically signed by: Douglas Zamora M.D. 12/27/2018 5:46 AM
--- NOTE | 2018-12-27 05:56 | Ultrasound Report ---
US gallbladder HISTORY: Flank pain ruq pain COMPARISON: None. FINDINGS: The exam demonstrates the presence of of several small gallbladder polyps. 1 cm gallstone region of t he gallbladder neck. No pericholecystic edema. Normal caliber bile ducts at 5 mm. Liver spleen and pancreas are unremarkable. IMPRESSION: 1. Gallstone the gallbladder neck region. 2. Several small gallbladder polyps. 3. Normal caliber bile ducts. The above report was generated using voice recognition software. It may contain grammatical, syntax or spelling errors. Electronically signed by: Douglas Zamora M.D. 12/27/2018 5:55 AM
[2018-12-27] MEDS ORDERED: PNEUMOCOCCAL ADMINISTRATION CHARGE ONE (06:00)
[2018-12-27] MEDS ORDERED: PNEUMOCOCCAL POLYSACCHARIDES 25 MCG/0.5 ML VIAL/SYR IM ONE (06:00)
[2018-12-27] MEDS ORDERED: AMLODIPINE BESYLATE 5 MG TAB PO SCH (09:00)
[2018-12-27] MEDS: PANTOprazole 40 MG TAB PO SCH (09:39)
--- NOTE | 2018-12-27 10:21 | Surgery Consultation ---
Date of Consultation December 27, 2018 Assessment & Plan (1) Acute cholecystitis: suspect her symptoms are from cholecystitis. discussed options/risks ( bleeding/infection/dvt/pe/mi/cva/bile leaks/injury to an organ etc...) questions answered. she would like to proceed with lap paul this admission if possible awaiting cardiology to see. if "cleared" will plan lap paul tomorrow. pt agreeable. (2) Elevated troponin: History of Present Illness Attending Physician: Giuseppe Warner History of Present Illness pt presented with acute RUQ pain and nausea. feeling better now. denies SOB. Allergies Allergy/AdvReac Type Severity Reaction Status Date / Time moxifloxacin AdvReac Unknown CT, N/V Verified 12/26/18 22:54 phenobarbital AdvReac Unknown "I GOT Verified 12/26/18 22:54 REALLY DITZY" Home Medications Home Medications Medication Instructions Recorded Confirmed Type amlodipine 10 mg tablet 10 mg PO DAILY #90 tab 12/14/18 12/26/18 Rx Patient History Medical History High blood pressure Social History Preferred Language: Polish Communication Ability: Effective Beliefs That Will Affect Care: None Current Living Situation: Spouse Feels Safe at Home: Yes Smoking Status: Never smoker Second Hand Exposure: No ; Hx Alcohol Use: No Hx Substance Use: No Review of Systems Review of Systems: All systems reviewed & are unremarkable except as noted in HPI & below Physical Exam Constitutional: WD/WN, vitals as above no acute distress and not ill appearing Eyes: PERRL, conjunctivae normal, anicteric sclerae EOM intact bilaterally ENMT: external ear and nose normal, oropharynx normal Ears: no hearing impairment Neck: trachea midline, no thyromegaly Respiratory: normal respiratory effort; no respiratory distress and does not use accessory muscles Cardiovascular: Rate/Rhythm: regular rate and regular rhythm Gastrointestinal (Abdomen): soft. mild RUQ ttp. no g/r/r Skin: no rashes, warm and dry Psychiatric: Orientation: alert, oriented x 3 and cooperative Results & Data Vital Signs (Past 12 Hours) Vital Signs Temp Pulse Pulse Resp BP BP Pulse Ox 12/27/18 07:14 36.6 C 58 L 20 152/74 H 95 12/27/18 04:51 61 12/27/18 04:36 36.4 C L 71 18 170/77 H 12/27/18 04:01 61 18 138/62 97 12/27/18 04:00 61 15 96 12/27/18 03:31 57 L 27 H 142/68 H 96 12/27/18 03:30 60 20 94 12/27/18 03:02 66 16 155/61 H 96 12/27/18 03:00 66 18 96 12/27/18 02:32 66 22 198/192 H 96 12/27/18 02:30 64 16 97 12/27/18 02:01 58 L 26 H 134/61 95 12/27/18 02:00 60 15 95 12/27/18 01:31 59 L 17 155/68 H 96 12/27/18 01:30 64 20 97 12/27/18 01:24 64 21 96 12/27/18 00:30 68 19 98 12/27/18 00:03 77 17 12/26/18 23:31 65 19 167/67 H 97 12/26/18 23:30 65 15 97 12/26/18 23:01 74 23 185/91 H 97 12/26/18 23:00 76 22 98 12/26/18 22:55 73 16 160/81 H 99 12/26/18 22:51 73 12/26/18 22:47 76 20 12/26/18 22:27 36.7 C 83 16 191/79 H 98 PG Care Time/CCT Total # of Minutes Spent Total Time Spent with Patient: Total time spent is greater than 50% in coordination of care (as documented) at patient's floor/unit and/or counseling patient:
[2018-12-27] MEDS: AMLODIPINE BESYLATE 5 MG TAB PO SCH (21:02)
[2018-12-28] MEDS: LACTATED RINGER'S 1,000 ML IV SCH ×3 (01:40→21:46)
[2018-12-28] MEDS: DICLOFENAC SOD 1% GEL 100 GM TUBE EXT PRN ×2 (02:17→21:48)
--- NOTE | 2018-12-28 08:04 | History & Physical Bridge Note ---
Date of Service December 28, 2018 History & Physical Bridge Note I have examined the patient, reviewed the History & Physical and in the interval since the performance of the History & Physical I have noted the following changes of clinical significance: no changes noted. no cardiology note on chart however echo looks good. will proceed with alessia miller.
[2018-12-28] MEDS: PANTOprazole 40 MG TAB PO SCH (08:32)
[2018-12-28 09:05] LABS: Basophils # (auto) 0.03 K/uL (0-0.2); Basophils % (auto) 0.4 %; Eosinophils # (auto) 0.24 K/uL (0-0.5); Eosinophils % (auto) 3.1 %; Hematocrit (blood only) 40.1 % (37-47); Hemoglobin 13.7 g/dL (12.0-16.0); Immature Granulocytes # (auto) 0.01 K/uL (0.00-0.02); Immature Granulocytes % (auto) 0.1 %; Lymphocytes % (auto) 26.2 %; Mean Corpuscular Hemoglobin 29.5 pg (25-34); Mean Corpuscular Hgb Conc 34.2 g/dL (32-36); Mean Corpuscular Volume 86.2 fL (80-100); Mean Platelet Volume 9.9 fL (7.4-10.4); Monocytes % (auto) 9.2 %; Neutrophils # (auto) 4.65 K/uL (1.4-6.5); Platelet Count 298 K/uL (130-400); RDW Coefficient of Variation 13.7 % (11.5-14.5); Red Blood Count 4.65 M/uL (4.2-5.4); White Blood Count 7.63 K/uL (4.8-10.8)
[2018-12-28 09:30] LABS: BUN Creatinine Ratio 15.8 (10-20); Calcium 8.8 mg/dl (8.5-10.1); Creatinine Clr Calc Pharmacy 54.5 ml/min; Est GFR (African American) 94.3; Est GFR (Non-African American) 81.3; Potassium 3.9 mmol/L (3.5-5.1)
[2018-12-28] MEDS ORDERED: LIDOCAINE HCL 2% 2 ML VIAL/AMP(20MG/ML) INFIL ONE (09:44)
[2018-12-28] MEDS ORDERED: fentaNYL citrate 100 MCG/2 ML VIAL ONE (09:44)
[2018-12-28] MEDS ORDERED: MIDAZOLAM HCL 1 MG/ML 2ML VIAL ONE (09:44)
[2018-12-28] MEDS ORDERED: NEOSTIGMINE METHYLSULFATE 5 MG/5 ML SYR ONE (09:44)
[2018-12-28] MEDS ORDERED: GLYCOPYRROLATE 0.2 MG/ML VIAL ONE (09:44)
[2018-12-28] MEDS ORDERED: PROPOFOL IV EMULSION 10 MG/ML 20 ML VIAL IV ONE (09:44)
[2018-12-28] MEDS ORDERED: ROCURONIUM BROMIDE 10 MG/ML 5 ML VIAL ONE (09:44)
[2018-12-28] MEDS ORDERED: CEFAZOLIN 2,000 MG/15 ML IV PUSH IV ONE (09:54)
[2018-12-28] MEDS ORDERED: CEFAZOLIN 2000MG 2,000 MG/15 ML SYR IV ONE (09:54)
[2018-12-28] MEDS ORDERED: BUPIVACAINE/EPINEPHRINE 0.5% MPF 1:200,000 30 ML VIAL ONE (09:59)
[2018-12-28] MEDS ORDERED: ATROPINE SULFATE 0.1 MG/ML 10ML SYR IV PRN (10:15)
[2018-12-28] MEDS ORDERED: ONDANSETRON INJ 2 MG/ML 2 ML VIAL IV PRN (10:15)
[2018-12-28] MEDS ORDERED: ePHEDrine sulfate 50 MG/ML AMP IV PRN (10:15)
[2018-12-28] MEDS ORDERED: PROMETHAZINE HCL 6.25 MG in SODIUM CHLORIDE 0.9% 50 ML IV PRN (10:15)
[2018-12-28] MEDS ORDERED: fentaNYL citrate 100 MCG/2 ML VIAL IV PRN (10:15)
[2018-12-28] MEDS ORDERED: HYDROmorphone INJ 2 MG/ML SYR/VIAL IV PRN (10:15)
--- NOTE | 2018-12-28 10:15 | Anesthesiology Consultation ---
Date of Service December 28, 2018 HTN Assessment & Plan (1) Encounter for pre-operative examination: Chart Review Chart Review: Acceptable Risk for Surgery and Patient NOT seen in Pre Admission Testing Consults Requested none ASA ASA2 Proposed Anesthesia Anesthesia Type: General Risk / Benefits Reviewed With: PT / POA / Parent / Guardian, Accepts Plan and Informed Consent Obtained History Surgery Operation Date: 12/27/18 07:00 Proposed Procedures p Laparoscopic Cholecystectomy - Wilder Ward DO Operation Date: 12/28/18 09:55 Proposed Procedures p Laparoscopic Cholecystectomy - Wilder Ward DO Height/Weight Height: 5 ft Weight: 61.6 kg Allergies Allergy/AdvReac Type Severity Reaction Status Date / Time moxifloxacin AdvReac Unknown CT, N/V Verified 12/26/18 22:54 phenobarbital AdvReac Unknown "I GOT Verified 12/26/18 22:54 REALLY DITZY" Medications Home Medications Medication Instructions Recorded Confirmed Last Taken amlodipine 10 mg tablet 10 mg PO DAILY #90 tab 12/14/18 12/26/18 Unknown Active Medications Generic Name Dose Route Start Last Admin Trade Name Freq PRN Reason Stop Dose Admin Amlodipine Besylate 10 mg 12/27/18 21:00 12/27/18 21:02 Norvasc PO 01/26/19 20:59 10 mg QPM CAROL Administration Diclofenac Sodium 1 appln 12/28/18 00:32 12/28/18 02:17 Voltaren 1% Top EXT 01/27/19 08:59 1 appln QID PRN Administration Pain Lactated Ringer's 1,000 mls @ 80 mls/hr 12/28/18 00:45 12/28/18 01:40 Lr IV 01/27/19 00:44 80 mls/hr .[id number] CAROL Administration Ioversol 71 ml 12/27/18 00:07 12/27/18 00:08 Optiray 320 125ml IV 12/31/18 00:06 71 ml ONCE PRN Administration Interaction Checking Pantoprazole Sodium 40 mg 12/27/18 09:00 12/28/18 08:32 Protonix PO 01/26/19 08:59 Not Given QAM CAROL NPO Date Last Intake of Fluids: 12/27/18 Time Last Intake of Fluids: 22:00 Date Last Intake of Solids: 12/27/18 Time Last Intake of Solids: 22:00 Past Medical History Medical History High blood pressure Exercise / Class Metabolic Activity II 4-5 Yardwork/Stairs/Walk up hill Past Anesthesia History No Hx of Anesthesia Complications and No Family Hx of Anesthesia Complications History of PONV No Hx of PONV and No Hx of Motion Sickness Social History Smoking Status: Never smoker Do You Dip or Chew Tobacco: No Hx Alcohol Use: No Hx Substance Use: No Physical Exam Vital Signs Last Vital Signs Temp 36.9 C 12/28/18 09:46 Pulse 65 12/28/18 09:46 Resp 20 12/28/18 09:46 BP 157/60 H 12/28/18 09:46 Pulse Ox 94 12/28/18 09:46 ENMT Mouth: no dentition abnormality Thyromental Distance: > or= 3.5 Finger Breadths Mallampati Class: II Neck normal visual inspection Respiratory normal respiratory effort Auscultation: lungs clear to auscultation bilaterally Cardiovascular Rate/Rhythm: regular rate and regular rhythm Psychiatric Orientation: alert Testing Laboratory Results 12/28/18 08:47 12/28/18 08:47 Echocardiogram Date: 12/27/18 EF: 55-60 LV Function: normal Valvular Disease: + no significant valvular disease
[2018-12-28] MEDS ORDERED: ONDANSETRON INJ 2 MG/ML 2 ML VIAL ONE (10:44)
--- NOTE | 2018-12-28 11:19 | Operative Report ---
Post Operative Report Pre & Post Diagnosis Operation Date: 12/27/18 07:00 <No data on this case meets the specified criteria> Operation Date: 12/28/18 09:55 Pre-Op Diagnosis: cholecystitis Post-Op Diagnosis: cholecystitis Procedure Operation Date: 12/27/18 07:00 <No data on this case meets the specified criteria> Operation Date: 12/28/18 09:55 Actual Procedures p Laparoscopic Cholecystectomy - Wilder Ward DO Surgeon Wilder Ward DO Food Service Supervisor jay Lei Estimated Blood Loss 5 Findings Consistent with Post-Op Diagnosis Specimens gallbladder Description of Procedure After informed consent was obtained the patient was taken to the operating room and placed in the supine position. After successful intubation the abdomen was sterilely prepped and draped in usual fashion. A periumbilical incision was made with an 11 blade scalpel and carried down through the soft tissue using electrocautery. The anterior rectus fascia was opened using electrocautery and 2 #0 Vicryl stay sutures were placed. The peritoneum was elevated with hemostats and incised under direct vision using Metzenbaum scissors. A finger sweep was performed and a 12 mm Lynn trocar was placed. The abdomen was insufflated to 18 mmHg. The laparoscope was inserted and the abdomen was examined in 360. There was an acutely inflammed gallbladder, a moderate sized hiatal hernia, and lower abdominal adhesions present. A subxiphoid 5 mm port and 2 right upper quadrant 5 mm ports were placed under direct vision. The patient was placed in a reverse Trendelenburg position and slightly airplaned to the left. The gallbladder was grasped and elevated superiorly and laterally. A small hole was made during this process releasing a small amount of bile into the RUQ. This was immediately suctioned/irrigated. A [place] dissector was used to take down adhesions around the neck of the gallbladder. The cystic duct was identified and skeletonized. It was clipped twice proximally and once distally and transected using a laparoscopic scissor. In similar fashion the cystic artery was identified and skeletonized clipped and divided. The gallbladder was removed from the gallbladder fossa with electrocautery. It was placed into an Endo Catch bag. Thorough irrigation was performed. At the end of the procedure there was adequate hemostasis and no evidence of any bile leaks. A final look around the abdomen showed no other abnormalities. The gallbladder and trochars were all removed and the abdomen was desufflated. The fascia of the camera port was closed using 0 Vicryl in a [id number] fashion. All the wounds were irrigated and closed using 4-0 Monocryl. Marcaine was injected around them for postoperative analgesia and skin glue used as a dressing. The patient was awaken extubated and transferred to recovery in stable condition. My physician's health care legal assistant was present throughout the entire case... helped with prepping the patient. With exposure for trocar placement, as well as retracted the gallbladder throughout the case and also assisted with wound closure and dressing placement. I attest to the content of the Intraoperative Record and any orders documented therein. Any exceptions are noted below.
[2018-12-28] MEDS ORDERED: KETOROLAC 30 MG/ML VIAL IV ONE (11:35)
[2018-12-28] MEDS ORDERED: KETOROLAC 30 MG/ML VIAL ONE (11:40)
[2018-12-28] MEDS ORDERED: MoRPHine SULFATE 4 MG/ML 1 ML CARP\\VIAL IV PRN (12:26)
--- NOTE | 2018-12-28 13:13 | Anesthesiology Progress Note ---
Date of Service December 28, 2018 Anesthesia Post Procedure Vital Signs Vital Signs: Temp Pulse Pulse Resp BP BP Pulse Ox 12/28/18 13:00 36.5 C 72 20 122/65 93 12/28/18 12:37 36.9 C 67 18 119/61 93 12/28/18 12:10 36.5 C 61 20 125/86 93 12/28/18 12:00 68 19 140/57 L 94 12/28/18 11:50 53 L 12 136/66 95 12/28/18 11:40 59 L 20 136/69 95 12/28/18 11:30 67 21 143/78 H 97 12/28/18 11:20 62 21 104/75 99 12/28/18 11:14 36.5 C 75 17 152/65 H 95 12/28/18 09:46 36.9 C 65 65 20 157/60 H 94 12/28/18 07:25 37.1 C 68 18 138/60 95 12/27/18 23:40 37.3 C 69 16 135/68 97 12/27/18 21:00 69 142/81 H 96 12/27/18 15:39 37.1 C 68 18 124/68 96 Pain Intensity Chest: Pain Intensity: 0 Right Upper Abdomen: Pain Intensity: 3 Abdomen: Pain Intensity: 0 Transfer of Care Handoff Completed per policy Notes Mental Status: alert / awake / arousable Patient Amnestic to Procedure: Yes Nausea / Vomiting: adequately controlled Pain: adequately controlled Airway Patency, RR, SpO2: stable & adequate BP & HR: stable & adequate Hydration State: stable & adequate Anesthetic Complications: no major complications apparent
--- NOTE | 2018-12-28 13:55 | Hospitalist Progress Note ---
Date of Service December 28, 2018 Assessment & Plan (1) Acute cholecystitis: Surgery consulted - Cholecystectomy 12/28 Other than troponin as below, labs were unremarkable. Repeat cbc, prp am (2) Elevated troponin: Elevated trop - peaked at 0.05 and trended down. Cardiology was consulted to clear her for surgery Echo w/o wma, EF 55% (3) Hypertension: continue amlodipine (4) DVT prophylaxis: SCDs Supervising Physician Co-Signing Physician Notes I have seen and examined pt with BYRON Michelle and agree with her exam, assessment and plan. Subjective Ms. Ramires is feeling ok but with some right upper quadrant tenderness. For cholecystectomy today Review of Systems Review of Systems: All systems reviewed & are unremarkable except as noted in HPI & below Physical Exam Constitutional: WD/WN, vitals as above Respiratory: normal respiratory effort, lungs clear to auscultation Cardiovascular: RRR, no murmur, no edema Gastrointestinal (Abdomen): Inspection/Auscultation: abdomen normal to inspection and normal bowel sounds; abdomen not distended Percussion/Palpation: + abdomen tender Musculoskeletal: no cyanosis or clubbing, extremities motor strength 5/5 Skin: no rashes, warm and dry Neurologic: moves all extremities and awake Psychiatric: A+Ox3, euthymic affect Results & Data Vital Signs (Past 12 Hours) Vital Signs Temp Pulse Pulse Resp BP BP Pulse Ox 12/28/18 13:00 36.4 C L 66 18 117/62 94 12/28/18 12:37 36.9 C 67 18 119/61 93 12/28/18 12:10 36.5 C 61 20 125/86 93 12/28/18 12:00 68 19 140/57 L 94 12/28/18 11:50 53 L 12 136/66 95 12/28/18 11:40 59 L 20 136/69 95 12/28/18 11:30 67 21 143/78 H 97 12/28/18 11:20 62 21 104/75 99 12/28/18 11:14 36.5 C 75 17 152/65 H 95 12/28/18 09:46 36.9 C 65 65 20 157/60 H 94 12/28/18 07:25 37.1 C 68 18 138/60 95 PG Care Time/CCT Total # of Minutes Spent Total Time Spent with Patient: Total time spent is greater than 50% in coordination of care (as documented) at patient's floor/unit and/or counseling patient:
--- NOTE | 2018-12-28 15:31 | Cardiology Consultation ---
Date of Consultation December 28, 2018 Assessment & Plan (1) Elevated troponin: Suspect the very mild elevation troponin was secondary to her hypertension in the face of her known left ventricle hypertrophy at the time of presentation. She has never experienced exertional angina pectoris. (2) Hypertension: Blood pressure now adequately controlled. (3) LVH (left ventricular hypertrophy): Mild left ventricular hypertrophy noted on her current echocardiogram. (4) Hypercholesterolemia: Diet controlled. (5) Preoperative cardiovascular examination: The patient is acceptable cardiac risk for a cholecystectomy without further testing. History of Present Illness Attending Physician: Giuseppe Warner History of Present Illness Mrs. Ramires is a 78-year-old female admitted yesterday with acute cholecystitis. Discussed issues ordered as a preop evaluation as her initial troponin was mildly elevated. Patient was in usual state of health until approximately 24 hours prior to presentation. She began to note right-sided abdominal discomfort, nausea, and low-grade fevers. She presented to the emergency was found to have acute cholecystitis. The patient carries a history of hypertension with mild left hypertrophy. At the time of her presentation, patient's blood pressure is significantly elevated 198/100. Blood pressure is now adequately controlled. The patient has never known of a cardiac event. She is active on a daily basis both at home work. She is able to use a push senior product development engineer to cut her grass. She also climb 3 flights of stairs without difficulty. Currently, patient resting comfortably in bed without complaints. Past medical and surgical history 1. Hypertension 2. Mild LVH 3. Hypercholesterolemia 4. GERD 5. 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 Osteoporosis 8. Vitamin-D deficiency 9. Appendectomy 10. Tonsillectomy 11. Hysterectomy Social history and lives with her Retired store loss prevention manager No tobacco or alcohol Family history Mother of an IA at 71. Father at 89 from an IA. First IA at age 51. Review of systems A 10 point review of systems was negative except for that described above. Allergies Allergy/AdvReac Type Severity Reaction Status Date / Time moxifloxacin AdvReac Unknown CT, N/V Verified 12/26/18 22:54 phenobarbital AdvReac Unknown "I GOT Verified 12/26/18 22:54 REALLY DITZY" Home Medications Home Medications Medication Instructions Recorded Confirmed Type amlodipine 10 mg tablet 10 mg PO DAILY #90 tab 12/14/18 12/26/18 Rx Patient History Medical History High blood pressure Surgical History Hx laparoscopic cholecystectomy (12/28/18) Laparoscopic Cholecystectomy Dr. Ward 12-28-18 Social History Preferred Language: Citizen Of [place] Communication Ability: Effective Beliefs That Will Affect Care: None marital status: Current Living Situation: Spouse Feels Safe at Home: Yes Smoking Status: Never smoker Second Hand Exposure: No ; Hx Alcohol Use: No Hx Substance Use: No Physical Exam Physical Exam: In general this is a well-developed well-nourished white female in no acute distress. HEENT exam is negative. Neck is supple with full carotid upstrokes. There are no carotid bruits. Jugular venous pressure is flat at 90. There is no thyromegaly. Cardiovascular exam reveals a regular rhythm with a normal S1 and S2. No S3, S4, or murmurs are noted. Lungs are clear without rales, rhonchi, or wheezes. Abdomen is soft without bruits. Extremities reveal intact radial artery and posterior tibial pulses bilaterally. There is no peripheral edema. Results & Data Vital Signs (Past 12 Hours) Vital Signs Temp Pulse Pulse Resp BP BP Pulse Ox 12/28/18 14:29 36.4 C L 69 16 117/62 97 12/28/18 13:00 36.4 C L 66 18 117/62 94 12/28/18 12:37 36.9 C 67 18 119/61 93 12/28/18 12:10 36.5 C 61 20 125/86 93 12/28/18 12:00 68 19 140/57 L 94 12/28/18 11:50 53 L 12 136/66 95 12/28/18 11:40 59 L 20 136/69 95 12/28/18 11:30 67 21 143/78 H 97 12/28/18 11:20 62 21 104/75 99 12/28/18 11:14 36.5 C 75 17 152/65 H 95 12/28/18 09:46 36.9 C 65 65 20 157/60 H 94 12/28/18 07:25 37.1 C 68 18 138/60 95 Laboratory Results Initial troponin was very mildly elevated 0.05 with a follow-up value 0.043. Diagnostic Findings EKG notes normal sinus rhythm with poor R-wave progression across the anterior precordium and evidence of left hypertrophy repolarization. PG Care Time/CCT Total # of Minutes Spent Total Time Spent with Patient: Total time spent is greater than 50% in coordination of care (as documented) at patient's floor/unit and/or counseling patient:
[2018-12-28] MEDS: AMLODIPINE BESYLATE 5 MG TAB PO SCH (19:44)
[2018-12-29 07:13] VITALS: BP 157/76; PULSE 67; TEMP 98.6; O2SAT 94
[2018-12-29] MEDS: PANTOprazole 40 MG TAB PO SCH (07:53)
[2018-12-29 08:10] LABS: Hematocrit (blood only) 37.9 % (37-47); Hemoglobin 12.5 g/dL (12.0-16.0); Mean Corpuscular Hemoglobin 28.8 pg (25-34); Mean Corpuscular Volume 87.3 fL (80-100); Mean Platelet Volume 9.8 fL (7.4-10.4); Platelet Count 278 K/uL (130-400); RDW Coefficient of Variation 13.6 % (11.5-14.5); RDW Standard Deviation 43.7 fL (36.4-46.3); Red Blood Count 4.34 M/uL (4.2-5.4); White Blood Count 8.22 K/uL (4.8-10.8)
--- NOTE | 2018-12-29 08:21 | Anesthesiology Progress Note ---
Date of Service December 29, 2018 Anesthesia Post Procedure Vital Signs Vital Signs: Temp Pulse Pulse Resp BP BP Pulse Ox 12/29/18 07:10 37.0 C 67 18 157/76 H 94 12/29/18 02:39 37.3 C 72 16 119/56 L 92 12/28/18 23:07 37.6 C H 73 16 120/58 L 91 12/28/18 19:42 75 18 148/72 H 94 12/28/18 19:23 37.1 C 74 16 157/69 H 93 12/28/18 15:35 36.8 C 64 16 140/63 93 12/28/18 14:29 36.4 C L 69 16 117/62 97 12/28/18 13:00 36.4 C L 66 18 117/62 94 12/28/18 12:37 36.9 C 67 18 119/61 93 12/28/18 12:10 36.5 C 61 20 125/86 93 12/28/18 12:00 68 19 140/57 L 94 12/28/18 11:50 53 L 12 136/66 95 12/28/18 11:40 59 L 20 136/69 95 12/28/18 11:30 67 21 143/78 H 97 12/28/18 11:20 62 21 104/75 99 12/28/18 11:14 36.5 C 75 17 152/65 H 95 12/28/18 09:46 36.9 C 65 65 20 157/60 H 94 Pain Intensity Chest: Pain Intensity: 0 Right Upper Abdomen: Pain Intensity: 0 Abdomen: Pain Intensity: 0 Notes Mental Status: alert / awake / arousable and participated in evaluation Patient Amnestic to Procedure: Yes Nausea / Vomiting: adequately controlled Pain: adequately controlled Airway Patency, RR, SpO2: stable & adequate BP & HR: stable & adequate Hydration State: stable & adequate Anesthetic Complications: no major complications apparent and Pt Satisfied with anesthetic care
--- NOTE | 2018-12-29 08:32 | Surgery Progress Note ---
Date of Service December 29, 2018 Assessment & Plan (1) Acute cholecystitis: doing great pod 1 ok for d/c instructions given f/u in 1-2 weeks. Subjective pt seen. doing well pod 1. no complaints "hungry" Physical Exam Physical Exam: alert/oriented. nad abd: soft. expected tenderness. Results & Data Vital Signs (Past 12 Hours) Vital Signs Temp Pulse Resp BP BP Pulse Ox 12/29/18 07:10 37.0 C 67 18 157/76 H 94 12/29/18 02:39 37.3 C 72 16 119/56 L 92 12/28/18 23:07 37.6 C H 73 16 120/58 L 91 PG Care Time/CCT Total # of Minutes Spent Total Time Spent with Patient: Total time spent is greater than 50% in coordination of care (as documented) at patient's floor/unit and/or counseling patient:
[2018-12-29 08:37] LABS: BUN Creatinine Ratio 13.9 (10-20); Calcium 8.5 mg/dl (8.5-10.1); Creatinine Clr Calc Pharmacy 56.9 ml/min; Est GFR (Non-African American) 84.6; Potassium 3.7 mmol/L (3.5-5.1)
--- NOTE | 2018-12-29 09:11 | Discharge Summary ---
Date of Service December 29, 2018 Admission HPI Per Admitting Provider 78 y/o F Hx HTN. Presents with RUQ pain. She had not had nausea, vomiting, CP, SOB, diarrhea, constipation or fevers. A gallbladder US demonstrated a 12mm stone in the gallbladder neck, and a distended gallbladder with mild thickening. This was deemed equivocal for cholecystitis. Initial labs were notable for a marginal troponin elevation. An EKG did not support ischemia. 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 Social: Does not smoke or drink Family: Mother - [place] age 71 Father age 87 - history of CAD Principal Diagnosis Cholecystitis Discharge Exam Constitutional WD/WN, vitals as above Respiratory normal respiratory effort, lungs clear to auscultation Cardiovascular RRR, no murmur, no edema Gastrointestinal (Abdomen) Inspection/Auscultation: abdomen normal to inspection and normal bowel sounds; abdomen not distended Percussion/Palpation: + abdomen tender Musculoskeletal no cyanosis or clubbing, extremities motor strength 5/5 Skin no rashes, warm and dry Neurologic moves all extremities and awake Psychiatric A+Ox3, euthymic affect Discharge Data Allergies Allergy/AdvReac Type Severity Reaction Status Date / Time moxifloxacin AdvReac Unknown BRANDONKY, N/V Verified 01/07/19 10:57 phenobarbital AdvReac Unknown "I GOT Verified 01/07/19 10:57 REALLY DIZZY" Consultations 12/27/18 02:31 ED Decision to Admit Stat 12/27/18 03:20 Consult General Surgery Routine 12/27/18 12:35 Consult Cardiology Routine Procedures Performed Operation Date: 12/27/18 07:00 <No data on this case meets the specified criteria> Operation Date: 12/28/18 09:55 Actual Procedures p Laparoscopic Cholecystectomy - Wilder Ward DO Ordered Studies 12/26/18 22:45 US gallbladder Urgent 12/26/18 23:34 CT angio chest PE protocol Urgent Hospital Course (1) Acute cholecystitis: Surgery consulted - Cholecystectomy 12/28 Other than troponin as below, labs were unremarkable and have remained so. (2) Elevated troponin: Elevated trop - peaked at 0.05 and trended down. Likely secondary to elevated blood pressures at the time of presentation. Cardiology was consulted to clear her for surgery Echo w/o wma, EF 55% (3) Hypertension: continue amlodipine Blood pressure was documented bas 191/79 - has since been around 150s/70s. Recommend patient take blood pressures daily and keep a log for her provider. Educated on s/s of hypertensive urgency. (4) DVT prophylaxis: SCDs Total Time Total Time Spent Total Time Spent (In Minutes): greater than 30 minutes Discharge Plan Discharge Items Patient Disposition: Home - Self-Care Reason For Visit: RUQ PAIN Discharge Diagnosis: laparoscopic cholecystectomy Condition: Fair Discharge Goals: Decrease discomfort and Improve disease control Activity: Per 'Additional Instructions' section Lifting: No more than 10 pounds Bathing Comment: you may shower starting today Exercise/Sports: Wait until after follow-up appointment Non-emergency contact: Surgeon Call non-emergency contact if: you have any medication questions, your symptoms worsen, your pain is worsening, your pain is unusual for you, you have a fever, your temperature is above 101.5, your wound has increased drainage and your wound pain has increased Follow-up/Referrals: Valencia Forman PA-C [Primary Care Provider] - 01/05/19 11:00 am (Please, follow up with Valencia Forman PA-C on FridayJanuary 05 at 11:00 am. *If you need to change this appointment, call the office at [phone].) Wilder Ward, DO [Surgeon] - (Please follow up with Dr. Ward within 2 weeks. You may call the office if you have any questions/concerns.) Diet: Regular Addtl Provider Instructions: While you were here, your blood pressure was running high. Please check your blood pressure at home once per day. You should vary what time you take it but always after sitting calmly for at least five minutes. Keep a log and take it with you to your next primary care provider appt. If your blood pressure runs high and you have symptoms you should call your doctor right away or call 911. Symptoms of hypertensive urgency include: chest pain, shortness of breath, headache, visual changes, and bloody nose. Prescriptions: New hydrocodone-acetaminophen [[place]] 5-325 mg tablet 1 - 2 tab PO Q4H PRN (Reason: pain, initial therapy) Qty: 15 RF: 0 Continued amlodipine 10 mg tablet 10 mg PO DAILY Qty: 90 RF: 3 No Action pantoprazole [Protonix] 40 mg tablet,delayed release (DR/EC) 40 mg PO DAILY Qty: 90 RF: 3 Stand-Alone Forms: Call Back Authorization, My [facility], Opioid Pain Management Jeaneth/Other Patient Handouts: Cholecystectomy, Cholecystectomy Laparoscopic Discharge Orders: Discharge Order (Routine); Ordered 12/29/18 Ordered By: Milagros Weller Admission Data Admit Date/Time: 12/27/18 03:10 Attending Provider: Kishan Mccoy Admit Provider: Claude Patino Primary Care Provider: Valencia Forman Other Providers: Wilder Ward ; Chris Anderson ; Milagros Weller ; Ray Juarez ; Karrie Frarell ; Celestino Aly Service: Medical Other Interventions: Discharge Summary Assessment (RN) Last Done: 12/29/18 10:01 DC Date/Time DO NOT enter until pt leaves facility: 12/29/18 10:26 Supervising Physician Co-Signing Physician Notes I have seen and examined pt with BYRON Michelle and agree with her exam, assessment and plan.
--- NOTE | 2018-12-29 13:44 | Cardiology Progress Note ---
Date of Service December 29, 2018 Assessment & Plan (1) Elevated troponin: Very mild elevation troponin was most likely secondary to her hypertension in the face of her known left ventricle hypertrophy at the time of presentation. She has never experienced exertional angina pectoris or limiting dyspnea. (2) Hypertension: Blood pressure now adequately controlled on current medical regimen. (3) LVH (left ventricular hypertrophy): Mild left ventricular hypertrophy noted on her echocardiogram. (4) Hypercholesterolemia: Diet controlled. Subjective The patient is resting comfortably at the bedside without complaints of chest pain or dyspnea. Postoperative pain adequately controlled. is at the bedside. Physical Exam Physical Exam: In general this is a well-developed well-nourished white female in no acute distress. HEENT exam is negative. Neck is supple with full carotid upstrokes. There are no carotid bruits. Jugular venous pressure is flat at 90. There is no thyromegaly. Cardiovascular exam reveals a regular rhythm with a normal S1 and S2. No S3, S4, or murmurs are noted. Lungs are clear without rales, rhonchi, or wheezes. Abdomen is soft without bruits. Extremities reveal intact radial artery and posterior tibial pulses bilaterally. There is no peripheral edema. Results & Data Vital Signs (Past 12 Hours) Vital Signs Temp Pulse Pulse Resp BP BP Pulse Ox 12/29/18 10:01 37.0 C 67 67 18 119/56 L 157/76 H 94 12/29/18 07:10 37.0 C 67 18 157/76 H 94 12/29/18 02:39 37.3 C 72 16 119/56 L 92 Laboratory Results CBC notes a hemoglobin of 12.5, crit 37.9, white count 8.2, and platelet count of [id number]. Electrolytes note a sodium of 142, potassium 3.7, chloride 1 await, bicarb 29, BUN 10, creatinine 0.69, glucose of 96. PG Care Time/CCT Total # of Minutes Spent Total Time Spent with Patient: Total time spent is greater than 50% in coordination of care (as documented) at patient's floor/unit and/or counseling p atient:
--- NOTE | 2019-01-01 13:11 | Coding Query ---
Pathology reviewed:Agree with your documentation PATHOLOGY To promote full compliance with coding requirements relating to patient care, physician participation is requested in all cases of staking engineer uncertainty. Please assist us with the question(s) below: Please review the Pathology report and please document any relevant diagnosis(es) below: Diagnosis(es): pathology confirms acute on chronic cholecystitis and cholelithiasis . Agree Thank you Jojo AMAYA
== END 2018-12-29 10:26 | disposition home or self-care (01) | DRG 419 ==
LOC: ED 22:26 → 2S 12-27 03:10 → SUATTDRO 12-27 03:10 → 2S 12-27 04:08 → 3N 12-27 14:52

== ENCOUNTER 2021-09-14 05:08 | Observation (INO) ==
--- NOTE | 2021-09-04 10:31 | PAT Medication Instructions ---
Medication Instructions Date of Service September 04, 2021 Home Medications Medication Instructions Recorded Miguel Barnhart #1 ea 08/30/21 multivitamin (Daily Multi-Vitamin) 1 tab PO QPM amlodipine 10 mg tablet 10 mg PO 1500 meloxicam 7.5 mg tablet 7.5 mg PO 1600 pantoprazole 40 mg tablet,delayed release 40 mg PO QAM ASK your surgeon for instructions meloxicam 7.5 mg tablet 7.5 mg PO 1600 Take morning of surgery With a small sip of water, OTHERWISE NOTHING TO EAT OR DRINK AFTER MIDNIGHT: pantoprazole 40 mg tablet,delayed release 40 mg PO QAM Take evening before surgery multivitamin (Daily Multi-Vitamin) 1 tab PO QPM amlodipine 10 mg tablet 10 mg PO 1500 Other Notes If you have any questions please call us at [phone] or [phone] or [phone] or [phone]
--- NOTE | 2021-09-06 13:06 | Anesthesiology Consultation ---
Date of Service September 06, 2021 Assessment & Plan (1) Encounter for pre-operative examination: - COVID screening: Per assessment on 09/06: No known COVID-19 positive contacts or current COVID-19 related symptoms. Travel screen negative. Patient vaccinated. Surgeon arranging preop COVID testing. Awaiting results. - S/P Laparoscopic Cholecystectomy (12/28/18): Grade 1 view, Davila 2, ETT 7 atraumatic x 1. No postop issues per anesthesia progress note. Chart Review Chart Review: Acceptable Risk for Surgery and Patient seen in Pre Admission Testing Teaching & Discussion Pre-Anesthesia Teaching/Discussion Notes: Instructed NPO after midnight before surgery,except medications with 15 cc of water. Medication instructions provide d according to the PAT guidelines. History Surgery Operation Date: 09/14/21 12:30 Proposed Procedures p Left Total Hip Arthroplasty - Gama Gomez MD Height/Weight Height: 5 ft Weight: 61.3 kg Allergies Allergy/AdvReac Type Severity Reaction Status Date / Time moxifloxacin AdvReac Unknown Shakiness, Verified 09/06/21 13:00 N/V phenobarbital AdvReac Unknown Dizziness Verified 09/06/21 13:00 Medications Home Medications Medication Instructions Recorded Confirmed Last Taken multivitamin (Daily Multi-Vitamin) 1 tab PO QPM 12/21/20 09/03/21 Unknown Wheeled Walker #1 ea 08/30/21 08/30/21 Unknown amlodipine 10 mg tablet 10 mg PO 1500 09/03/21 09/03/21 Unknown meloxicam 7.5 mg tablet 7.5 mg PO 1600 09/03/21 09/03/21 Unknown pantoprazole 40 mg tablet,delayed 40 mg PO QAM 09/03/21 09/03/21 Unknown release Past Medical History Medical History Cognitive change Abnormal mini cog (12/2020), t/c further future testing per PCP Dyslipidemia Gastroesophageal reflux disease Controlled Glaucoma Hepatic steatosis Hypertension Irritable bowel syndrome Osteoporosis Rosacea Schatzki's ring Small bowel obstruction 2002 Volvulus of intestine 2002 Exercise / Class Metabolic Activity II 4-5 Yardwork/Stairs/Walk up hill (one FS (no CP, no SOB)) Past Family History Family History Mother Coronary heart disease age71 Hypertension Father Myocardial infarction Coronary heart disease premature CAD age 89 Denies family history of Ovarian cancer Prostate cancer Breast cancer Lung cancer Colorectal cancer Past Surgical History Surgical History H/O exploratory laparotomy For small bowel resection due to obstruction + appe (2001) H/O hysterectomy for benign disease 1982 (2/2 menorrhagia) History of colonoscopy Hx laparoscopic cholecystectomy Laparoscopic Cholecystectomy (12/28/18): Grade 1 view, Davila 2, ETT 7 atraumatic x 1. No postop issues per anesthesia progress note. Hx of appendectomy 2001 Hx of tonsillectomy S/P cataract surgery R/L (2016) Past Anesthesia History No Family Hx of Anesthesia Complications and Other ("slow to wake") History of PONV No Hx of PONV and No Hx of Motion Sickness Social History Smoking Status: Never smoker Do You Dip or Chew Tobacco: No Hx Alcohol Use: No Hx Substance Use: No substance use type: does not use Review of Systems Patient denies chest pain, shortness of breath, dyspnea on exertion, fever, chills, cough, wheezing, palpitations. Physical Exam Vital Signs VITALS BP 146/87 P 78 TEMP 98.4 SP02 97%RA RESP 16 PHYSICAL Full cervical extension range of motion. Full TMJ range of motion. TMD 3 finger breaths Mallampati Score 3 Dentition: upper front left implant Lungs: clear throughout to auscultation Cardiac: regular rate and rhythm, no murmurs noted Spine: normal Carotid arteries: negative bruit Extremities: no edema Lab Results Anesthesia Preop Results Results Anesthesia Widget: WBC 7.95 K/uL (4.8-10.8) 09/06/21 Hgb 13.7 g/dL (12.0-16.0) 09/06/21 Hct 41.0 % (37-47) 09/06/21 Plt 311 K/uL (130-400) 09/06/21 Na 139 mmol/L (136-145) 09/06/21 K 3.5 mmol/L (3.5-5.1) 09/06/21 Cl 105 mmol/L (98-107) 09/06/21 CO2 25 mmol/L (21-32) 09/06/21 BUN 11 mg/dl (6-23) 09/06/21 Creat 0.83 mg/dl (0.6-1.2) 09/06/21 Glucose Level 119 mg/dl (70-99(Fasting)) H 09/06/21 PT 10.8 Seconds (9.0-12.0) 09/06/21 PTT 26.7 Seconds (21.0-31.0) 09/06/21 INR 1.0 (0.9-1.1) 09/06/21 Blood Type A Positive 09/06/21 Antibody Screen NEGATIVE 09/06/21 Testing Electrocardiogram Date: 09/06/21 NSR at 66bpm. Possible anterior infarct, age undetermined. NS TWA. No significant change compared to 12/26/2018 EKG per armor reconnaissance vehicle crewman review. Pt had echo 12/27/18 which was unremarkable. Chest X-Ray Date: 09/06/21 FINDINGS: Frontal and lateral radiographs of the chest demonstrates the heart to be mildly enlarged. The lungs are clear of alveolar opacities. There is no evidence for effusion bilaterally. There is no evidence for vascular congestion. There is no acute osseous pathology. IMPRESSION: No acute cardiopulmonary disease. Echocardiogram Date: 12/27/18 EF 55-60%. Mild concentric LVH. No regional motion abnormality. No significant valvular disease.
[2021-09-14] MEDS ORDERED: TRANEXAMIC ACID 1,000 MG **IV Pre-op IV SCH (06:00)
[2021-09-14] MEDS ORDERED: METOCLOPRAMIDE HCL 10 MG TABLET PO SCH (06:00)
[2021-09-14] MEDS ORDERED: CeleBREX 200 MG CAP PO SCH (06:00)
[2021-09-14] MEDS ORDERED: LR 500ML BOLUS, THEN 15ML/HR IV SCH (06:00)
[2021-09-14] MEDS ORDERED: FAMOTIDINE 20 MG TAB PO SCH (06:00)
[2021-09-14] MEDS ORDERED: ceFAZolin 2000MG 2,000 MG/15 ML SYR IV SCH (06:00)
[2021-09-14] MEDS ORDERED: LR 60ML/HR IV SCH (06:00)
[2021-09-14] MEDS ORDERED: ACETAMINOPHEN 500 MG TAB PO SCH (06:00)
[2021-09-14] MEDS ORDERED: BUPIVACAINE 0.5 % 5 MG/1 ML PF 10ML VIAL ONE (06:25)
[2021-09-14] MEDS ORDERED: MIDAZOLAM HCL 1 MG/ML 2ML VIAL ONE (06:29)
[2021-09-14] MEDS ORDERED: fentaNYL citrate 100 MCG/2 ML VIAL ONE (06:29)
[2021-09-14] MEDS ORDERED: PROPOFOL IV EMULSION 10 MG/ML 20 ML VIAL IV ONE ×3 (06:29→07:44)
[2021-09-14] MEDS ORDERED: EPINEPHrine INJ 1 MG/ML AMP ONE (06:37)
--- NOTE | 2021-09-14 06:55 | History & Physical Bridge Note ---
Date of Service September 14, 2021 History & Physical Bridge Note I have examined the patient, reviewed the History & Physical and in the interval since the performance of the History & Physical I have noted the following changes of clinical significance: no changes noted
[2021-09-14] MEDS ORDERED: PROMETHAZINE HCL 12.5 MG in SODIUM CHLORIDE 0.9% 50 ML IV PRN (07:06)
[2021-09-14] MEDS ORDERED: ePHEDrine sulfate 50 MG/ML AMP IV PRN (07:06)
[2021-09-14] MEDS ORDERED: fentaNYL citrate 100 MCG/2 ML VIAL IV PRN (07:06)
[2021-09-14] MEDS ORDERED: ATROPINE SULFATE 0.1 MG/ML 10ML SYR IV PRN (07:06)
[2021-09-14] MEDS ORDERED: HYDROmorphone INJ 1 MG/ML SYRINGE IV PRN (07:06)
[2021-09-14] MEDS ORDERED: ONDANSETRON INJ 2 MG/ML 2 ML VIAL IV PRN ×2 (07:06→09:50)
[2021-09-14] MEDS ORDERED: PHENYLEPHRINE 100MCG/ML 5ML SYR ONE (07:21)
[2021-09-14] MEDS: BUPIVACAINE 0.5 % 5 MG/1 ML MPF 30ML VIAL ONE ×2 (07:35→07:42)
--- NOTE | 2021-09-14 08:57 | Operative Report ---
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 She had grade 4 [id number] disease of femoral head and acetabulum. She diffuse osteopenia. We elect to use a cemented stem due to her osteopenia. Specimens Left femoral head sent for pathology Anesthesia Type Spinal MAC Complications none Disposition Accompanied Patient To Recovery: Yes Indications Patient is 81-year-old female said a several year history of increasing left hip pain discomfort is gotten significant worse over the past year to the point that she has had use a cane to get around. X-rays show advanced left hip arthritis likely secondary to avascular necrosis. She failed conservative measures and elected proceed with total hip arthroplasty. Due to her soft bone and osteopenia we elected place a cemented femoral stem. Description of Procedure Operative implants consist of: 1 Biomet G7 size 50 mm acetabular shell. 2. 6.5 cancellous acetabular screws 1 of 35 mm length 1 to 25 mm length. 3. [place] hole applications sales representative. 4. Highly cross-linked polyethylene liner with a 50 mm outer diameter and 36 mm inner diameter. 5. DePuy [place] size 2 standard offset cemented femoral stem. 6. +5/36 mm metal articular ball. The patient was taken the operating, identified, and placed on the operating table supine position protectors were properly padded. IV antibiotics tried by anesthesia team. A spinal anesthetic had been implemented holding area. Culp catheter was placed in sterile fashion. The patient then placed in the right lateral decubitus position and an axillary roll was placed. A [place] hip positioner was used for positioning. Left hip and leg were then prepped and draped in usual sterile fashion. A posterior lateral approach to the left hip was then performed to a curvilinear incision centered over the greater trochanter. Sharp dissection was carried through subcutaneous tissue down to the IT band gluteal fascia the IT band gluteal fascia were incised longitudinally in line with skin incision. The underlying greater bursa was excised. The piriformis and external rotators were tagged and taken off the posterior aspect hip joint capsule. Great care was taken throughout the procedure protect the sciatic nerve at all times. Posterior capsulotomy was then performed leaving a large flap for later repair. Hip was internally rotated and dislocated. Femoral neck osteotomy cut was made with a Final Cut about 12 mm above the lesser trochanter. Femoral head was removed and sent for pathology. The femur was retracted anteriorly. Attention drawn the acetabulum. The acetabular labrum was excised. The pulmonary fat was excised. Sequential reaming the acetabular was then performed again with a size 43 and progressing up to 49. I did ream some with a 50 reamer and then placed a 50 mm cup. The AP dimensions were quite a bit smaller than the superior-inferior dimensions. The cup was fixed with two 6.5 cancellous acetabular screws. Trial liner was placed. Attention drawn the femur. The proximal femur was entered with a Element Robot cutter followed by canal finder and lateralizing reamer. Then broached begin the size 1 broach. I could not quite get the 2 broach down. Therefore we trialed the hip with a 1 broach. It was fully stable with the +5 articular head. Leg lengths seemed appropriate and soft tissue tension seemed appropriate. We elect to place these implants. All trial implants were removed. An apex hole applications sales representative was placed. Highly cross-linked polyethylene liner was placed. A small cement restrictor was then placed. A double batch [place] G cement was mixed and injected in the canal up. A [place] size 2 standard offset cemented stem was then placed. All extraneous cement was removed. The implant was held still until the cement hardened. Once the cement hardened I placed a +5/36 mm metal articular ball. Hip was located once again found to be quite stable. Attention then drawn toward closing. The wound was irrigated scope soft pulsatile lavage solution. I did inject locally with about 45 cc of absent Marcaine with epinephrine. The posterior capsule and external rotators were then repaired through drill holes in the posterior trochanter with #2 Tycron suture. The IT band gluteal fascia then closed in 1 PDS suture in a running fashion for subcutaneous tissues then closed with 2 layers the deep layer #1 Vicryl suture and subcutaneous tissues with 2-0 Dexon suture in buried interrupted fashion skin was closed skin stephanie. Leg was then cleaned and dried a sterile dressing with Xeroform, 4 x 4's, ABD pad, foam tape was applied. The patient then transferred to the recovery room in stable condition. Patient tolerated procedure well and there were no complications. Luis Alfredo Mckeon, my physician assistant food service manager, was present for the entire procedure. His assistance was essential and required for appropriate patient positioning, prepping and draping, surgical exposure, performing the technical details of the operation, placement the implants, closure of the wound, and placement of the sterile bandage. I attest to the content of the Intraoperative Record and any orders documented therein. Any exceptions are noted below.
--- NOTE | 2021-09-14 09:26 | XRay Report ---
AP PELVIS, CROSSTABLE LATERAL LEFT HIP History: Left total hip arthroplasty. Degenerative arthritis. Postop. FINDINGS: The patient is status post a left total hip arthroplasty. The hardware is intact. No fractu re or dislocation. Skin stephanie are in place. IMPRESSION: Left total hip arthroplasty. No evidence for hardware complication. ACT 112: Negative or not required by law. Electronically signed by: Jessee Ramos M.D. 09/14/2021 9:24 AM
--- NOTE | 2021-09-14 09:34 | Anesthesiology Progress Note ---
Date of Service September 14, 2021 Anesthesia Post Procedure Vital Signs Vital Signs: Temp Pulse Pulse Resp BP Pulse Ox 09/14/21 09:15 36.2 C L 65 16 132/70 96 09/14/21 09:05 69 23 140/54 L 98 09/14/21 08:55 68 16 123/50 L 99 09/14/21 08:45 36.0 C L 72 14 123/75 97 09/14/21 05:38 37.1 C 71 20 178/77 H 98 Transfer of Care Handoff Completed per policy Notes Mental Status: alert / awake / arousable and participated in evaluation Patient Amnestic to Procedure: Yes Nausea / Vomiting: adequately controlled Pain: adequately controlled Airway Patency, RR, SpO2: stable & adequate BP & HR: stable & adequate Hydration State: stable & adequate Neuraxial Anesthesia: was administered and sensory block is resolving Anesthetic Complications: no major complications apparent
[2021-09-14] MEDS ORDERED: NALOXONE HCL 0.4 MG/1 ML VIAL/CARP IV PRN (09:50)
[2021-09-14] MEDS ORDERED: HYDROmorphone INJ 0.5 MG/0.5 ML SYR IV PRN (09:50)
[2021-09-14] MEDS ORDERED: MAGNESIUM HYDROXIDE SUSP 30 ML UDC PO PRN (09:50)
[2021-09-14] MEDS ORDERED: ALUMINUM/MAGNESIUM SUSP 30 ML UDC PO PRN (09:50)
[2021-09-14] MEDS ORDERED: METOCLOPRAMIDE HCL INJ 5 MG/ML 2 ML VIAL IV PRN (09:50)
[2021-09-14] MEDS ORDERED: traMADol HCL 50 MG TABLET PO PRN (09:50)
[2021-09-14] MEDS ORDERED: bisacodyL 10 MG SUPP PR PRN (09:50)
[2021-09-14] MEDS: SODIUM CHLORIDE 0.9% 1000ML 1,000 ML IV SCH ×2 (11:08→21:33)
[2021-09-14] MEDS: DOCUSATE SODIUM/SENNA 50/8.6MG TAB PO SCH (14:11)
[2021-09-14] MEDS: PANTOprazole 40 MG TAB PO SCH (14:11)
[2021-09-14] MEDS: ASPIRIN 81 MG ECTAB PO SCH ×2 (14:11→21:02)
[2021-09-14] MEDS: DOCUSATE SODIUM 100 MG CAP PO SCH ×2 (14:11→21:02)
[2021-09-14] MEDS: MULTIVITAMIN TAB PO SCH (14:11)
[2021-09-14] MEDS: ACETAMINOPHEN 500 MG TAB PO SCH ×2 (14:12→22:36)
[2021-09-14] MEDS: KETOROLAC TROMETHAMINE 15 MG/ML VIAL IV SCH ×2 (14:12→19:55)
[2021-09-14] MEDS ORDERED: amLODIPine BESYLATE 5 MG TAB PO SCH (15:00)
[2021-09-14] MEDS ORDERED: TRANEXAMIC ACID / 0.7% NACL 1,000 MG/100 ML BAG IV SCH (15:00)
[2021-09-14] MEDS: ceFAZolin 1000MG 1,000 MG/7.5 ML SYR IV SCH ×2 (15:31→22:38)
--- NOTE | 2021-09-14 17:54 | Progress Notes ---
DATE OF SERVICE: 09/14/2021. SUBJECTIVE: A 81-year-old white female postoperative from left hip replacement. She is doing well. Really not having any pain yet. No chest pain or shortness of breath. Not feeling dizzy or lighthe aded. OBJECTIVE: VITAL SIGNS: Temperature 36.6. Vital signs are stable. PHYSICAL EXAMINATION: GENERAL: Shows a pleasant, elderly female, sitting up in bed and talking to her and looks co mfortable. LUNGS: Clear to auscultation. HEART: Regular rate and rhythm. ABDOMEN: Soft, nontender, nondistended. EXTREMITIES: Grossly neurovascularly intact except as follows: Examination of the left hip and leg reveals the leg lengths are equal. Her hip is located. Her thigh is soft and supple. Dressing is c lean, dry and intact. She is neurologically intact. She can dorsiflex and plantarflex her foot appr opriately. X-RAYS: X-rays of the left hip from recovery room were reviewed. It shows a left hybrid total hip a rthroplasty with cemented femoral component. Evidently looks appropriate. No signs of problems or f racture. ASSESSMENT: A 81-year-old white female postoperative from a hybrid total hip replacement, doing well . Hip is located. She is neurologically intact. Pain is controlled. PLAN: 1. DVT prophylaxis includes thigh-high TEDs, SCDs, and aspirin twice a day. 2. PT, OT, weightbear as tolerated. Left total hip protocol. 3. Pain control, doing well with current pain regimen. 4. IV antibiotics x24 hours. 5. Disposition: Plan to discharge to home with some home health once adequately recovered and medic ally stable. Job ID: [id number]
[2021-09-14] MEDS: ASCORBIC ACID 500 MG TAB PO SCH (18:09)
[2021-09-14] MEDS ORDERED: SENNA 8.6 MG TAB PO SCH (21:00)
[2021-09-14] MEDS ORDERED: NON-FORMULARY MEDICATION (Multivitamin [Daily Multi-Vitamin] tablet) PO SCH (21:00)
[2021-09-15] MEDS: KETOROLAC TROMETHAMINE 15 MG/ML VIAL IV SCH ×2 (01:50→08:21)
[2021-09-15] MEDS: ACETAMINOPHEN 500 MG TAB PO SCH (05:59)
[2021-09-15] MEDS: SODIUM CHLORIDE 0.9% 1000ML 1,000 ML IV SCH (06:23)
[2021-09-15 06:58] LABS: Basophils # (auto) 0.03 K/uL (0-0.2); Basophils % (auto) 0.3 %; Eosinophils # (auto) 0.27 K/uL (0-0.5); Eosinophils % (auto) 2.6 %; Hematocrit (blood only) 36.7 % (37-47); Hemoglobin 12.5 g/dL (12.0-16.0); Immature Granulocytes # (auto) 0.02 K/uL (0.00-0.02); Immature Granulocytes % (auto) 0.2 %; Lymphocytes % (auto) 16.6 %; Mean Corpuscular Hemoglobin 29.5 pg (25-34); Mean Corpuscular Hgb Conc 34.1 g/dL (32-36); Mean Corpuscular Volume 86.6 fL (80-100); Mean Platelet Volume 9.9 fL (7.4-10.4); Monocytes # (auto) 0.71 K/uL (0.11-0.59); Monocytes % (auto) 6.9 %; Neutrophils # (auto) 7.49 K/uL (1.4-6.5); Neutrophils % (auto) 73.4 %; Platelet Count 309 K/uL (130-400); RDW Coefficient of Variation 13.7 % (11.5-14.5); RDW Standard Deviation 43.3 fL (36.4-46.3); Red Blood Count 4.24 M/uL (4.2-5.4); White Blood Count 10.22 K/uL (4.8-10.8)
[2021-09-15 07:25] LABS: BUN Creatinine Ratio 14.5 (10-20); Calcium 8.4 mg/dl (8.5-10.1); Creatinine Clr Calc Pharmacy 67.9 ml/min; Est GFR (African American) 103.4 ml/min; Est GFR (Non-African American) 89.2 ml/min; Potassium 3.5 mmol/L (3.5-5.1)
[2021-09-15] MEDS ORDERED: dexAMETHasone 10 MG in SYRINGE 0 ML IV SCH (08:00)
[2021-09-15] MEDS: ASPIRIN 81 MG ECTAB PO SCH (08:22)
[2021-09-15] MEDS: DOCUSATE SODIUM 100 MG CAP PO SCH (08:22)
[2021-09-15] MEDS: ASCORBIC ACID 500 MG TAB PO SCH (08:23)
[2021-09-15] MEDS: PANTOprazole 40 MG TAB PO SCH (08:24)
[2021-09-15] MEDS: MULTIVITAMIN TAB PO SCH (08:24)
[2021-09-15] MEDS: DOCUSATE SODIUM/SENNA 50/8.6MG TAB PO SCH (08:24)
--- NOTE | 2021-09-15 08:41 | Progress Notes ---
DATE OF SERVICE: 09/15/2021. SUBJECTIVE: A 81-year-old white female postoperative day 1 from a left hybrid total hip arthroplasty . She is doing pretty well. Had a good night. She has been getting around reasonably well. Hoping to go home. OBJECTIVE: VITAL SIGNS: Temperature 36.7. Vital signs are stable. GENERAL: Shows a pleasant, elderly female, sitting up in bed and looks quite comfortable this gon g. LUNGS: Clear to auscultation. HEART: Regular rate and rhythm. ABDOMEN: Soft, nontender, nondistended. EXTREMITIES: Grossly neurovascularly intact except as follows. Examination of the left leg reveals the dressing to be clean, dry and intact. Leg lengths were equal . Thigh is soft and supple. She is neurologically intact. LABORATORY DATA: Hemoglobin 12.5. Hematocrit 36.7. Electrolytes are stable. ASSESSMENT: A 81-year-old white female postoperative day 1 from left hip replacement, doing pretty w ell. PLAN: 1. DVT prophylaxis includes thigh-high TEDs, SCDs, and aspirin twice a day. 2. PT, OT, weightbear as tolerated. Left total hip protocol. 3. Pain control, doing well with current pain regimen. 4. Disposition: Plan to discharge to home with some home health, possibly later today if she does o elise in therapy. Job ID: [id number]
--- NOTE | 2021-09-20 13:56 | Discharge Summary ---
Date of Service September 20, 2021 Discharge Data Procedures Performed Operation Date: 09/14/21 07:00 Actual Procedures p Left Total Hip Arthroplasty--Cemented(Left) - Gama Gomez MD Hospital Course (1) S/P total left hip arthroplasty: This patient is a 81 year old female admitted on 09/14/21 and underwent total hip arthroplasty. She tolerated the procedure well and there were no complications. Transferred to the PACU post op and later to the orthopedic floor for further care. She was given ancef for antibiotic prophylaxis. She was also given CHERI stockings, SCDs, and aspirin for DVT prophylaxis. Hemoglobin, hematocrit, and vital signs were monitored during her hospital stay and remained stable. Did not require any blood transfusions. There were no complications during her hospital stay. By post op day #1 the patient was tolerating a regular diet, pain was reasonably controlled with oral pain medicine, and she was participating in physical therapy. On post op day #1 the patient was discharged home and set up with home health care. She was given printed discharge instructions including prescriptions for extra strength tylenol, aspirin, toradol, zofran, and trama dol. Continue physical therapy, weight bearing as tolerated. Continue CHERI stockings. Follow up approximately 2 weeks post op or sooner if there are problems or concerns. Coding Level of Care Code None Diagnoses S/P total left hip arthroplasty Z96.642
== END 2021-09-15 12:52 | disposition home health service (06) ==
LOC: 3E 05:08 → ASU 05:08